=== PATIENT | male | born 1990 | race Caucasian/White ===

== ENCOUNTER 2024-10-20 14:27 | Outpatient (REF) | payer MEDICAID, SELFPAY ==
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
--- OUTSIDE RECORDS SUMMARY | 2024-10-17 13:45 | XMS_ITS | Encounter Summary ---
Author Organization [employer] Address [address] [place] [address] Care Team Providers Care Gang Ripsaw Operator Name Role Phone Unavailable Primary Care Provider Unavailabl e Reason for Visit * Reason Comments Wound Care Encounter Details Date Type Department Care Team (Late st Contact Info) Description 10/17/2024 1:45 PM EDT Office Visit [facility] [address] [place] [phone] Mathieu Bolton PA [address] [place] [address] Chronic venous hypertension (idiopathic) with ulcer of right lower extremity (CMS/HCC V24, CMS/HCC V28) (Primary Dx); Non-pressure chronic ulcer of right lower leg with fat layer exposed (CMS/HCC V24, CMS/HCC V28) Social History Tobacco Use Types Packs/Day Years Used Date Smoking Tobacco: Every Day Cigarettes Smokeless Tobacco: Never Alcohol Use Standard Drinks/Week Comments Not Currently 0 (1 standard drink = 0.6 oz pur e alcohol) Sex and Gender Information Value Date Recorded Sex Assigned at Not on file Legal Sex Male 10:10 AM EDT Gender Identity Not on file Sexual Orientation Not on file documented as of this encounter Last Filed Vital Signs Vital Sign Reading Time Taken Comments Blood Pressure 115/78 10/17/2024 1:49 PM EDT Pulse - - Temperature 36.2 C (97.2 F) 10/17/2024 1:49 PM EDT Respiratory Rate 18 10/17/2024 1:49 PM EDT Oxygen Saturation - - Inhaled Oxygen Concentration - - Weight - - Height - - Body Mass Index - - documented in this encounter Progress Notes * Susan Crockett RN - 10/17/2024 1:45 PM EDT PROVIDER ORDERS Go to ER if you are presenting with fever, chills, increased redness, pain, swelling, warmth aroundwound area and/or foul smelling odor. If you have any questions or concerns, please contact the [facility] [place] at . Follow up(s)/ Referrals: Venous ultrasound: 12/02/24 at 10:45am, arrive by 10:30am Halfway: N/A Additional Orders: Increase protein in your diet to help promote wound healing, Work to decrease smoking with goal of quitting Lidocaine Orders: Apply Lidocaine 5% Topical Ointment prior to debridements at Wound Care appointments Edema Control: (If your compression wrap(s) feel to tight, please elevate your leg(s) about heart level. If your wrap(s) are becoming painful and/or you loose sensation of toes/ are having toe discoloration (a change from your baseline), please remove / unwrap compression and notify [facility] at . ) Unna boot to right lower extremity, Elevate legs above heart level as much as possible Offloading: N/A Negative Pressure Wound Therapy: (If wound vac is off/non functioning for more than 2 hours, please remove vac dressing, apply a wetto dry dressing and notify your home care agency) N/A Cellular/Tissue Based Products: N/A Bathing / Showering / Hygiene: May shower with protection but DO NOT get wound dressing(s) wet. Protect dressing(s) with water repellant cover ( for example- large plastic bag or cast bag) and then may take shower. Non-wound Condition/ Other Skin Care: N/A Wound Location(s): Wound #1 (Right Lateral Leg): Cleanser: Cleanse with Normal Saline Periwound: N/A Topical: N/A Primary dressing: Collagen with Silver- will dissolve in wound. If not dissolving you may moisten with saline prior to covering. Secondary dressing: Optilock Secure with: 4 conforming gauze roll , 1 paper tape Compression Therapy: Unna boot to right lower extremity Dressing Change Frequency: DO NOT change for one week * Sherley Ni RN - 10/17/2024 1:45 PM EDT Discharge Patient directed to check out at front of house manager and collect visit summary with wound care directions and book follow up as directed. Dressings applied: Wound #1 (Right Lateral Leg): Cleanser: Normal Saline Primary dressing: Collagen with Silver-moistened Secondary dressing: Optilock Secure with: 4 conforming gauze roll , 1 paper tape Compression Therapy: Unna boot Dressing technique was demonstrated and explained. Patient questions answered. Pt discharge from wound care center without issue or incidence. documented in this encounter Plan of Treatment Upcoming Encounters Date Type Department Care Team (Late st Contact Info) Description 10/24/2024 1:45 PM EDT Clinical Support [facility] [address] [place] [address] 12/02/2024 10:45 AM EDT Ancillary Procedure [facility] [address] [phone] Pending Results Name Type Priority Associated Diagnoses Date /Time Wound Care Procedure Venous Ulcer Leg Right;Lateral Procedures Routine Chronic venous hypertension (idiopathic) with ulcer of right lower extremity (CMS/HCC V24, CMS/HCC V28) Non-pressure chronic ulcer of right lower leg with fat layer exposed (CMS/HCC V24, CMS/HCC V28) 10/17/2024 2:04 PM EDT Debridement Venous Ulcer Right;Lateral Leg Procedures Routine Chronic venous hypertension (idiopathic) with ulcer of right lower extremity (CMS/HCC V24, CMS/HCC V28) Non-pressure chronic ulcer of right lower leg with fat layer exposed (CMS/HCC V24, CMS/HCC V28) 10/17/2024 1:45 PM EDT documented as of this encounter Goals Goal Patient Goal Type Associated Problems Recent Progress Patient-Stated? Author Decrease Wound Volume by X% by date (in notes) Care Plan Impaired Tissue Improving(01/2025 2:05 PM EDT) Susan Yanes RN Patient and Caregiver Understand Wound Care Education Care Plan Impaired Tissue On track( 2:05 PM EDT) Susan Yanes RN Wound volume breakdown reduced by X% by week 4 Care Plan Impaired Tissue No Susan Crockett RN Wound volume breakdown reduced by X% by week 8 Care Plan Impaired Tissue No Susan Crockett RN Wound volume breakdown reduced by X% by week 12 Care Plan Impaired Tissue No Susan Crockett RN Quit using tobacco (cigarettes, smokeless, etc) Care Plan Education needed on impact of smoking on wound No Susan Crockett RN Reduce tobacco use (cigarettes, smokeless, etc) Care Plan Education needed on impact of smoking on wound No Susan Crockett RN Decrease Wound Volume by X% by date (in notes) Care Plan Education needed on impact of smoking on wound No Susan Crockett RN Patient and Caregiver Understand Wound Care Education Care Plan Education needed related to ulceration/compr omised skin integrity. No uSsan Crockett RN documented as of this encounter Procedures Procedure Name Priority Date/Time Associated Diagnosis Comments WOUND CARE PROCEDURE Routine 10/17/2024 2:04 PM E DT Chronic venous hypertension (idiopathic) with ulcer of right lower extremity (CMS/HCC V24, CMS/HCC V28) Non-pressure chronic ulcer of right lower leg with fat layer exposed (CMS/HCC V24, CMS/HCC V28) DEBRIDEMENT Routine 10/17/2024 1:45 PM EDT Chronic venous hypertension (idiopathic) with ulcer of right lower extremity (CMS/HCC V24, CMS/HCC V28) Non-pressure chronic ulcer of right lower leg with fat layer exposed (CMS/HCC V24, CMS/HCC V28) documented in this encounter Visit Diagnoses Diagnosis Chronic venous hypertension (idiopathic) with ulcer of right lower extremity (CMS/HCC V24, CMS/HCC V28)- Primary Non-pressure chronic ulcer of right lower leg with fat layer exposed (CMS/HCC V24, CMS/HCC V28) documented in this encounter Additional Health Concerns Active Problems Noted Date Diagnosed Date Impaired Tissue 08/15/2024 Education needed on impact of smoking on wound 0 08/15/2024 Education needed related to ulceration/compromised skin integrity. 08/15/2024 Assessment Noted Time PHQ-9 Depression Total Score: 2 08/16/19 25 2:47 PM EDT documented as of this encounter
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
[2024-10-20 16:37] LABS: Alanine Aminotransferase 129 U/L (0-40); Albumin Level 4.4 g/dL (3.5-5.0); Alkaline Phosphatase 54 U/L (39-117); Aspartate Amino Transferase 71 U/L (5-37); Total Protein 7.3 g/dL (6.5-8.0)
--- OUTSIDE RECORDS SUMMARY | 2024-10-20 19:57 | XMS_ITS | Encounter Summary ---
Author Organization [facility] [facility] Address [address] [place] [address] 7 [place] [address] Care Team Providers Care Evening Or Night Nurse Supervisor Name Role Phone Sendy Mike ANP- Primary Care Provider Gaviota Pereyra NP Primary Care Provider [phone] Reason for Visit * Reason Onset Date Comments -01/25/2022 Encounter Details Date Type Department Care Team (Late st Contact Info) Description 01/25/2022 Telephone Adult Medicine [address] [place] [address] Sendy Mike ANP- Social History Tobacco Use Types Packs/Day Years Used Date Smoking Tobacco: Never Smokeless Tobacco: Never Sex and Gender Information Value Date Recorded Sex Assigned at Male 12/02/2021 5:59 PM EDT Legal Sex Male 5:59 PM EDT Gender Identity Male 12/02/2021 5:59 PM EDT Sexual Orientation Straight 12/02/2021 5: 59 PM EDT COVID-19 Exposure Response Date Recorded In the last 10 days, have yo u been in contact with someone who was confirmed or suspected to have Coronavirus/COVID-19? No / Unsure 01/12/2022 8:30 AM EST documented as of this encounter Miscellaneous Notes * Telephone Encounter - Pratik Steinberg RN - 01/25/2022 12:46 PM EST See other telephone call encounter. * Telephone Encounter - Marylu Barraza - 01/25/2022 10:17 AM EST Called to inform pcp that pt was seen in er on 01/23 documented in this encounter Plan of Treatment Upcoming Encounters Date Type Department Care Team (Late st Contact Info) Description 10/22/2024 9:00 AM EDT Office Visit [address] [address] Sergio Gipson MD [address] [place] [address] 10/29/2024 9:00 AM EDT Office Visit [address] [address] Sergio Gipson MD [address] [place] [address] 11/19/2024 9:30 AM EDT Office Visit [address] [address] Gaviota Rivera NP [address] [place] [address] 01/05/2025 10:30 AM EST Office Visit [address] [address] Gaviota Rivera NP [address] [place] [phone] documented as of this encounter Visit Diagnoses Not on filedocumented in this encounter Care Teams Evening Or Night Nurse Supervisor Relationship Specialty Start Date End Date Sendy Mike ANP- PCP - General 02/05/21 10/02/22 Gaviota Rivera NP [address] [place] [phone] PCP - General Family Medicine 10/13/24 documented as of this encounter
--- OUTSIDE RECORDS SUMMARY | 2024-10-20 19:57 | XMS_ITS | Encounter Summary ---
Author Organization [email or web address] Address [address] [facility] 7 [place] [address] Care Team Providers Care Exhibition Carver Name Role Phone Gaviota Rivera CORA Primary Care Provider [phone] Encounter Details Date Type Department Care Team (Latest Contact Info) Description 10/20/2024 Travel Social History Tobacco Use Types Packs/Day Years [...] Cueto [place] documented as of this encounter Plan of Treatment Upcoming Encounters Date Type Department Care Team (Late st Contact Info) Description 10/22/2024 9:00 AM EDT Office Visit [address] [address] Sergio Gipson MD [address] [place] [phone] 10/29/2024 9:00 AM EDT Office Visit [address] [address] Sergio Gipson MD [address] [place] [address] 11/19/2024 9:30 AM EDT Office Visit [address] [address] Gaviota Rivera NP [address] [place] [address] 01/05/2025 10:30 AM EST Office Visit [address] [address] Gaviota Rivera NP [address] [place] [address] documented as of this encounter Goals Goal Patient Goal Type Associated Problems Recent Progress Patient-Stated? Author Start ATR and GED programs General Yes Dottie Patel, LIANNE documented as of this encounter Visit Diagnoses Not on filedocumented in this encounter Additional Health Concerns Assessment Noted Time PHQ-9 Depression Total Score: 0 10/21/19 25 2:18 PM EDT documented as of this encounter Care Teams Exhibition Carver Relationship Specialty Start Date End Date Gaviota Rivera NP [address] [place] [address] [place] [address] PCP - General Family Medicine 10/13/24 documented as of this encounter
--- OUTSIDE RECORDS SUMMARY | 2024-10-20 19:57 | XMS_ITS | Encounter Summary ---
Author Organization [employer] Address [address] [facility] [address]t [place] [address] Care Team Providers Care Boiler Tenders Supervisor Name Role Phone Gaviota Rivera REGISTERED PHLEBOTOMIST PART TIME Primary Care Provider [phone] Reason for Visit * Reason Comments [facility] Encounter Details Date Type Department Care Team (Late st Contact Info) Description 10/20/2024 Patient Outreach [facility] [address] [place] [address] Tyron Odom [facility] Social History Tobacco Use Types Packs/Day Years [...] is your housing situation today? I have navaalexis tolentino 10/20/[address] you [...] as of this encounter Progress Notes * Tyron Odom - 10/20/2024 3:45 PM EDT I met with Cleveland dove. Setting: in person at [facility] Wellness Goals worked on: Social Stability Action taken/next steps: Attended alcohol and drug free activity Additional comments: Tyron Odom documented in this encounter Plan of Treatment Upcoming Encounters Date Type Department Care Team (Late st Contact Info) Description 10/22/2024 9:00 AM EDT Office Visit [address] [address] Sergio Gipson MD [address] [place] [address] 10/29/2024 9:00 AM EDT Office Visit [address] [address] Sergio Gipson MD [address] [place] [address] 11/19/2024 9:30 AM EDT Office Visit [address] [address] Gaviota Rivera NP [address] [place] [address] 01/05/2025 10:30 AM EST Office Visit [address] [address] Gaviota Rivera NP [address] [place] [address] documented as of this encounter Goals Goal Patient Goal Type Associated Problems Recent Progress Patient-Stated? Author Start ATR and GED programs General Yes Dottie Patel, RN documented as of this encounter Visit Diagnoses Not on filedocumented in this encounter Additional Health Concerns Assessment Noted Time PHQ-9 Depression Total Score: 0 10/21/19 2:18 PM EDT documented as of this encounter Care Teams Boiler Tenders Supervisor Relationship Specialty Start Date End Date Gaviota Rivera NP [address] [place] [address] PCP - General Family Medicine 10/13/24 documented as of this encounter
--- OUTSIDE RECORDS SUMMARY | 2024-10-20 19:57 | XMS_ITS | Encounter Summary ---
Author Organization [facility] Address [address] [place] [address] [address] [place] [address] Care Team Providers Care Acid Tank Cleaner Name Role Phone Sendy Mike ANP-BC Primary Care Provider Gaviota Pereyra NP Primary Care Provider [phone] Reason for Visit * Reason Onset Date Comments call back looking for recovery program Encounter Details Date Type Department Care Team (Late st Contact Info) Description 04/04/2022 Telephone Health Benefits [address] [place] [address] Sendy Mike ANP-BC call back looking for recovery program Social History Tobacco Use Types Packs/Day Years [...] suspected to have Coronavirus/COVID-19? No / Unsure 03/31/2022 10:53 AM EST documented as of this encounter Miscellaneous Notes * Telephone Encounter - Rosa Maria Pink - 04/11/2022 12:10 PM EST Pt is requesting to speak to Sendy regarding assistance for a new Men's Program since he has to be out by next Sunday with [employer]. He would like a call back ny. * Telephone Encounter - Sylvia Ash - 04/10/2022 9:38 AM EST Pt. Call today to f/u on these request. Please call Pt. [phone]. He will coming out of the program about 04/18 and he will like to be on a program after you get out of these program. Please advise. Thanks * Telephone Encounter - Gabby Joshias - 04/04/2022 9:42 AM EST Pt is looking for new men's recovery program since he has tow weeks left in the program he is part of now. documented in this encounter Plan of Treatment Upcoming Encounters Date Type Department Care Team (Late st Contact Info) Description 10/22/2024 9:00 AM EDT Office Visit [address] [address] Sergio Gipson MD [address] [place] [phone] 10/29/2024 9:00 AM EDT Office Visit [address] [address] Sergio Gipson MD [address] [place] [phone] 11/19/2024 9:30 AM EDT Office Visit [address] [address] Gaviota Rivera NP [address] [place] [phone] 01/05/2025 10:30 AM EST Office Visit [address] [address] Gaviota Rivera NP [address] [place] [phone] documented as of this encounter Visit Diagnoses Not on filedocumented in this encounter Care Teams Acid Tank Cleaner Relationship Specialty Start Date End Date Sendy Mike ANP- PCP - General 02/05/21 10/02/22 Gaviota Rivera NP [address] [place] [phone] PCP - General Family Medicine 10/13/24 documented as of this encounter
--- OUTSIDE RECORDS SUMMARY | 2024-10-20 19:57 | XMS_ITS ---
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 08/15/2024 Goals Goal Patient Goal Type Associated Problems Recent Progress Patient-Stated? Author Decrease Wound Volume by X% by date (in notes) Care Plan Impaired Tissue Improving(01/2025 2:05 PM EDT) No Susan Crockett RN Patient and Caregiver Understand Wound Care Education Care Plan Impaired Tissue On track( 2:05 PM EDT) No Susan Crockett RN Wound volume breakdown reduced by X% by week 4 Care Plan Impaired Tissue No Susan Crockett, wastewater technician volume breakdown reduced by X% by week 8 Care Plan Impaired Tissue No Susan Crockett RN Wound volume breakdown reduced by X% by week 12 Care Plan Impaired Tissue No Susan Crockett, LIANNE Quit using tobacco (cigarettes, smokeless, etc) Care Plan Education needed on impact of smoking on wound No Susan Crockett, LIANNE Reduce tobacco use (cigarettes, smokeless, etc) Care Plan Education needed on impact of smoking on wound No Susan Crockett, RN Decrease Wound Volume by X% by date (in notes) Care Plan Education needed on impact of smoking on wound No Susan Crockett, RN Patient and Caregiver Understand Wound Care Education Care Plan Education needed related to ulceration/compr omised skin integrity. No Susan Crockett RN Interventions Care Plan Interventions Intervention Entry Date Outcome Provide caregiver with wound care procedure information 08/15/2024 Educate caregiver on proper wound care procedures 08/15/2024 Give provider list of wound care supplies 08/15/2024 Refill wound care supplies 08/15/2024 Send Wound Care Supplies 08/15/2024 Give provider list of wound care supplies 08/15/2024 Refill wound care supplies 08/15/2024 Send Wound Care Supplies 08/15/2024 Provide caregiver with wound care procedure information 08/15/2024 Educate caregiver on proper wound care procedures 08/15/2024 Document patient eligibility for HBO 08/15/2024 Assess patient for HBO treatment 08/15/2024 Record wound depth 08/15/2024 Record total wound area 08/15/2024 Measure wound progress 08/15/2024 Create an action plan identifying patient strengths and supports 08/15/2024 Establish quit date with patient 08/15/2024 Discuss prior cessation attempts 08/15/2024 Discuss preferred method of cessation and plan 08/15/2024 Discuss barriers to smoking cessation 08/15/2024 Discuss smoking status with patient 08/15/2024 Create an action plan identifying patient strengths and supports 08/15/2024 Establish quit date with patient 08/15/2024 Discuss prior cessation attempts 08/15/2024 Discuss preferred method of cessation and plan 08/15/2024 Discuss barriers to smoking cessation 08/15/2024 Discuss smoking status with patient 08/15/2024 Provide caregiver with wound care procedure information 08/15/2024 Educate caregiver on proper wound care procedures 08/15/2024 Document patient eligibility for HBO 08/15/2024 Assess patient for HBO treatment 08/15/2024 Record wound depth 08/15/2024 Record total wound area 08/15/2024 Measure wound progress 08/15/2024 Provide caregiver with wound care procedure information 08/15/2024 Educate caregiver on proper wound care procedures 08/15/2024 Document patient eligibility for HBO 08/15/2024 Assess patient for HBO treatment 08/15/2024 Record wound depth 08/15/2024 Record total wound area 08/15/2024 Measure wound progress 08/15/2024 Provide caregiver with wound care procedure information 08/15/2024 Educate caregiver on proper wound care procedures 08/15/2024 Document patient eligibility for HBO 08/15/2024 Assess patient for HBO treatment 08/15/2024 Record wound depth 08/15/2024 Record total wound area 08/15/2024 Measure wound progress 08/15/2024 Provide caregiver with wound care procedure information 08/15/2024 Educate caregiver on proper wound care procedures 08/15/2024 Give provider list of wound care supplies 08/15/2024 Refill wound care supplies 08/15/2024 Send Wound Care Supplies 08/15/2024 Give provider list of wound care supplies 08/15/2024 Refill wound care supplies 08/15/2024 Send Wound Care Supplies 08/15/2024 Provide caregiver with wound care procedure information 08/15/2024 Educate caregiver on proper wound care procedures 08/15/2024 Document patient eligibility for HBO 08/15/2024 Assess patient for HBO treatment 08/15/2024 Record wound depth 08/15/2024 Record total wound area 08/15/2024 Measure wound progress 08/15/2024 Related Goals and Interventions Goal Associated Intervent ions Decrease Wound Volume by X% by date (in notes) Give provider list of wound care supplie s; Refill wound care supplies; Send Wound Care Supplies; Provide caregiver with wound care procedure information; Educate caregiver on proper wound care procedures; Document patient eligibility for HBO; Assess patient for HBO treatment; Record wound depth; Record total wound area; Measure wound progress Patient and Caregiver Unders tand Wound Care Education Provide caregiver with wound care proced ure information; Educate caregiver on proper wound care procedures; Give provider list of wound care supplies; Refill wound care supplies; Send Wound Care Supplies Wound volume breakdown reduc ed by X% by week 4 Provide caregiver with wound care proced ure information; Educate caregiver on proper wound care procedures; Document patient eligibility for HBO; Assess patient for HBO treatment; Record wound depth; Record total wound area; Measure wound progress Wound volume breakdown reduc ed by X% by week 8 Provide caregiver with wound care proced ure information; Educate caregiver on proper wound care procedures; Document patient eligibility for HBO; Assess patient for HBO treatment; Record wound depth; Record total wound area; Measure wound progress Wound volume breakdown reduc ed by X% by week 12 Provide caregiver with wound care proced ure information; Educate caregiver on proper wound care procedures; Document patient eligibility for HBO; Assess patient for HBO treatment; Record wound depth; Record total wound area; Measure wound progress Quit using tobacco (cigarett es, smokeless, etc) Create an action plan identifying patien t strengths and supports; Establish quit date with patient; Discuss prior cessation attempts; Discuss preferred method of cessation and plan; Discuss barriers to smoking cessation; Discuss smoking status with patient Reduce tobacco use (cigarett es, smokeless, etc) Create an action plan identifying patien t strengths and supports; Establish quit date with patient; Discuss prior cessation attempts; Discuss preferred method of cessation and plan; Discuss barriers to smoking cessation; Discuss smoking status with patient Decrease Wound Volume by X% by date (in notes) Give provider list of wound care supplie s; Refill wound care supplies; Send Wound Care Supplies; Provide caregiver with wound care procedure information; Educate caregiver on proper wound care procedures; Document patient eligibility for HBO; Assess patient for HBO treatment; Record wound depth; Record total wound area; Measure wound progress Patient and Caregiver Unders tand Wound Care Education Provide caregiver with wound care proced ure information; Educate caregiver on proper wound care procedures; Give provider list of wound care supplies; Refill wound care supplies; Send Wound Care Supplies
--- OUTSIDE RECORDS SUMMARY | 2024-10-20 19:57 | XMS_ITS | Clinical Summary ---
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 Active prazosin (MINIPRESS) 2 mg capsule Take 1 capsule (2 mg total) by mouth at bedtime. Active buprenorphine-n aloxone (Suboxone) 2-0.[address] 2 films under the tongue 1 (one) time each day. After the medication is completely dissolved, take a large sip of water, swish it around teeth and gums, and swallow. Wait at least 1 hour before brushing teeth to avoid damage to your teeth. Active doxycycline (VIBRAMYCIN) 100 mg capsule Take 1 capsule (100 mg total) by mouth 2 (two) times a day for 10 days. Take with at least 8 ounces (large glass) of water, do not lie down for 30 minutes after. Administer 2 hours before or after multivitamins, antacids, or other products containing polyvalent cations (i.e., calcium, iron, magnesium, selenium, zinc). 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 [address] [place] [phone] Mathieu Bolton PA Chronic venous hypertension (idiopathic) with ulcer of right lower extremity (CMS/HCC V24, CMS/HCC V28) (Primary Dx); Non-pressure chronic ulcer of right lower leg with fat layer exposed (CMS/HCC V24, CMS/HCC V28) 10/09/2024 3:15 PM EDT Office Visit [facility] [address] [place] [phone] Mathieu Bolton PA Chronic venous hypertension (idiopathic) with ulcer of right lower extremity (CMS/HCC V24, CMS/HCC V28) (Primary Dx); Non-pressure chronic ulcer of right lower leg with fat layer exposed (CMS/HCC V24, CMS/HCC V28) 10/02/2024 2:00 PM EDT Office Visit [facility] [address] [place] [phone] Mathieu Bolton PA Chronic venous hypertension (idiopathic) with ulcer of right lower extremity (CMS/HCC V24, CMS/HCC V28) (Primary Dx); Non-pressure chronic ulcer of right lower leg with fat layer exposed (CMS/HCC V24, CMS/HCC V28) 09/25/2024 1:30 PM EDT Office Visit [facility] [address] [place] [phone] Mathieu Bolton PA Non-pressure chronic ulcer of right lower leg with fat layer exposed (CMS/HCC V24, CMS/HCC V28) (Primary Dx); Chronic venous hypertension (idiopathic) with ulcer of right lower extremity (CMS/HCC V24, CMS/HCC V28) 09/20/2024 9:07 PM EDT - 09/20/2024 9:[address] [facility] [address] [place] [phone] Abscess of axilla, right (Primary Dx) Discharge Disposition: Home or Self Care 09/18/2024 2:00 PM EDT Office Visit [facility] [address] [place] [phone] Mathieu Bolton PA Surgical wound dehiscence, subsequent encounter (Primary Dx); Non-pressure chronic ulcer of right lower leg with fat layer exposed ([facility] V24, [facility] V28) 09/11/2024 8:30 AM EDT Office Visit [facility] [address] [place] [phone] Mathieu Bolton PA Non-pressure chronic ulcer of right lower leg with fat layer exposed ([facility] [place]24, [facility] [place] (Primary Dx); Surgical wound dehiscence, subsequent encounter 09/05/2024 10:00 AM EDT Office Visit [facility] [address] [place] [phone] Phyllis Dominguez MD Surgical wound dehiscence, subsequent encounter (Primary Dx); Non-pressure chronic ulcer of right lower leg with fat layer exposed ([facility] V24, [facility] V28) 09/05/[address] [facility] [address] [place] [phone] Sherley Ni, LIANNE 09/05/[address] [facility] [address] [place] [phone] Sherley Ni, LIANNE 08/27/2024 8:15 AM EDT Office Visit [facility] [address] [place] [phone] Mathieu Bolton PA Surgical wound dehiscence, subsequent encounter (Primary Dx); Non-pressure chronic ulcer of right lower leg with fat layer exposed ([facility] V24, [facility] [place] Edema leg 08/27/[address] [facility] [address] [place] [phone] Lynne Thorpe LPN 08/27/[address] [facility] [address] [place] [phone] Mathieu Bolton PA 08/22/2024 11:30 AM EDT Office Visit [facility] [address] [place] [phone] Mathieu Bolton PA Surgical wound dehiscence, subsequent encounter (Primary Dx); Non-pressure chronic ulcer of right lower leg with fat layer exposed (CMS/HCC V24, [facility] V28); Chronic venous hypertension (idiopathic) with ulcer of right lower extremity ([facility] V24, [facility] V28) 08/15/2024 2:30 PM EDT Office Visit [facility] [address] [place] [phone] Mathieu Bolton PA Surgical wound dehiscence, initial encounter (Primary Dx); Non-pressure chronic ulcer of right lower leg with fat layer exposed ([facility] V24, [facility] V28) from Last 3 Months Surgical History Surgery Date Site/Laterality Comments OTHER SURGICAL HISTORY patietn denies surgical history Family History Medical History Relation Name Comments Diabetes Mother Relation Name Status Comments Mother Alive Social History Tobacco Use Types Packs/Day Years Used Date Smoking Tobacco: Every Day Cigarettes Smokeless Tobacco: Never Tobacco Cessation:Ready to Q uit: Not Asked; Counseling Given: Not Answered Alcohol Use Standard Drinks/Week Comments Not Currently 0 (1 standard drink = 0.6 oz pur e alcohol) Sex and Gender Information Value Date Recorded Sex Assigned at Not on file Legal Sex Male 10:10 AM EDT Gender Identity Not on file Sexual Orientation Not on file Obstetrics History Last Filed Vital Signs Vital Sign Reading Time Taken Comments Blood Pressure 115/78 10/17/2024 1:49 PM EDT Pulse 82 10/09/2024 3:03 PM EDT Temperature 36.2 C (97.2 F) 10/17/2024 1:49 PM EDT Respiratory Rate 18 10/17/2024 1:49 PM EDT Oxygen Saturation 96% 10/09/2024 3:03 PM EDT Inhaled Oxygen Concentration - - Weight 113 kg (250 lb) 09/20/2024 9:07 PM EDT Height 172.7 cm (5' 8 ) 09/20/2024 9:07 PM EDT Body Mass Index 38.01 09/20/2024 9:07 PM EDT Plan of Treatment Upcoming Encounters Date Type Department Care Team (Late st Contact Info) Description 10/24/2024 1:45 PM EDT Clinical Support [facility] [address] [place] [phone] 12/02/2024 10:45 AM EDT Ancillary Procedure [facility] [address] [place] [phone] Health Maintenance Due Date Last Done Comments Hepatitis A Vaccines (1 of 2 - Risk 2-dose series) 2008 Hepatitis B Vaccines (1 of 3 - 19+ 3-dose series) 2008 Pneumococcal Vaccine: Pediatrics (0 to 5 Years) and At-Risk Patients (6 to 49 Years) (1 of 2 - PCV) 2008 Cholesterol Screening (Lipid Panel) 08/13/2024 Hepatitis C Screening 08/13/2024 Social Influencers of Health Screening 08/13/2024 COVID-19 Vaccine (1 - 2023-2 5 season) 2024 Influenza Vaccine (#1) 2024 2, 10/28/2019 DTaP,Tdap,and Td Vaccines (4 - Td or Tdap) 09/06/2029 09/07/2019, 03/12/2019, 12/12/2010 HIV Screening Completed 05/10/2022 Depression Screening Completed 08/15/2024 HIB Vaccines Aged Out No longer eligi ble based on patient's age to complete this topic HPV Vaccines Aged Out No longer eligi ble based on patient's age to complete this topic IPV Vaccines Aged Out No longer eligi ble based on patient's age to complete this topic MMR Vaccines Aged Out No longer eligi ble based on patient's age to complete this topic Meningococcal ACWY Vaccine Aged Out N o longer eligible based on patient's age to complete this topic Meningococcal B Vaccine Aged Out No l onger eligible based on patient's age to complete this topic RSV Immunization Patients Under 20 months Aged Out No longer eligible b ased on patient's age to complete this topic Varicella Vaccines Aged Out No longer eligible based on patient's age to complete this topic Goals Goal Patient Goal Type Associated Problems Recent Progress Patient-Stated? Author Decrease Wound Volume by X% by date (in notes) Care Plan Impaired Tissue Improving(01/2025 2:05 PM EDT) Susan Yanes RN Patient and Caregiver Understand Wound Care Education Care Plan Impaired Tissue On track( 025 2:05 PM EDT) Susan Yanes RN Wound [...] needed on impact of smoking on wound Susan Yanes RN Reduce tobacco use (cigarettes, smokeless, etc) [...] omised skin integrity. No Susan Crockett RN Procedures Procedure Name Priority Date/Time Associated Diagnosis Comments WOUND CARE PROCEDURE Routine 10/17/2024 2:04 PM EDT Chronic venous hypertension (idiopathic) with [...] fat layer exposed (CMS/HCC V24, CMS/HCC V28) WOUND CARE PROCEDURE Routine 10/09/2024 3:19 PM EDT Chronic venous hypertension (idiopathic) with ulcer of right lower extremity (CMS/HCC V24, CMS/HCC V28) Non-pressure chronic ulcer of right lower leg with fat layer exposed (CMS/HCC V24, CMS/HCC V28) DEBRIDEMENT Routine 10/09/2024 3:15 PM EDT Chronic venous hypertension (idiopathic) with ulcer of right lower extremity (CMS/HCC V24, CMS/HCC V28) Non-pressure chronic ulcer of right lower leg with fat layer exposed (CMS/HCC V24, CMS/HCC V28) WOUND CARE PROCEDURE Routine 10/02/2024 2:14 PM EDT Chronic venous hypertension (idiopathic) with ulcer of right lower extremity (CMS/HCC V24, CMS/HCC V28) Non-pressure chronic ulcer of right lower leg with fat layer exposed (CMS/HCC V24, CMS/HCC V28) DEBRIDEMENT Routine 10/02/2024 2:00 PM EDT Chronic venous hypertension (idiopathic) with ulcer of right lower extremity (CMS/HCC V24, CMS/HCC V28) Non-pressure chronic ulcer of right lower leg with fat layer exposed (CMS/HCC V24, CMS/HCC V28) WOUND CARE PROCEDURE Routine 10/02/2024 1:57 PM EDT Non-pressure chronic ulcer of right lower leg with fat layer exposed (CMS/HCC V24, CMS/HCC V28) Surgical wound dehiscence, subsequent encounter WOUND CARE PROCEDURE Routine 09/25/2024 2:18 PM EDT Chronic venous hypertension (idiopathic) with ulcer of right lower extremity (CMS/HCC V24, CMS/HCC V28) Non-pressure chronic ulcer of right lower leg with fat layer exposed (CMS/HCC V24, CMS/HCC V28) DEBRIDEMENT Routine 09/25/2024 1:30 PM EDT Chronic venous hypertension (idiopathic) with ulcer of right lower extremity (CMS/HCC V24, CMS/HCC V28) Non-pressure chronic ulcer of right lower leg with fat layer exposed (CMS/HCC V24, CMS/HCC V28) HC I&D/EXCISION/BIOPSY BONE MARROW/TISSUE/TUMOR/ HTOMA/ABSC/CYST LEVEL 1 Routine 09/20/2024 9:21 PM EDT NE INCISION & DRAINAGE ABSCESS SIMPLE/SINGLE Routine 09/20/2024 9:21 PM EDT WOUND CARE PROCEDURE Routine 09/18/2024 2:23 PM EDT Surgical wound dehiscence, subsequent encounter Non-pressure chronic ulcer of right lower leg with fat layer exposed (CMS/HCC V24, CMS/HCC V28) DEBRIDEMENT Routine 09/18/2024 2:00 PM EDT Surgical wound dehiscence, subsequent encounter Non-pressure chronic ulcer of right lower leg with fat layer exposed (CMS/HCC V24, CMS/HCC V28) WOUND CARE PROCEDURE Routine 09/05/2024 3:37 PM EDT Surgical wound dehiscence, subsequent encounter Non-pressure chronic ulcer of right lower leg with fat layer exposed (CMS/HCC V24, CMS/HCC V28) WOUND CARE PROCEDURE Routine 08/27/2024 8:20 AM EDT Surgical wound dehiscence, subsequent encounter Non-pressure chronic ulcer of right lower leg with fat layer exposed (CMS/HCC V24, CMS/HCC V28) Edema leg DEBRIDEMENT Routine 08/27/2024 8:15 AM EDT Surgical wound dehiscence, subsequent encounter Non-pressure chronic ulcer of right lower leg with fat layer exposed (CMS/HCC V24, CMS/HCC V28) Edema leg DEBRIDEMENT Routine 08/22/2024 11:30 AM EDT Surgical wound dehiscence, subsequent encounter Non-pressure chronic ulcer of right lower leg with fat layer exposed (CMS/HCC V24, CMS/HCC V28) DEBRIDEMENT Routine 08/15/2024 2:30 PM EDT Surgical wound dehiscence, initial encounter Non-pressure chronic ulcer of right lower leg with fat layer exposed (CMS/HCC V24, CMS/HCC V28) from Last 3 Months Results * Wound Care Procedure Venous Ulcer Leg Right;Lateral (10/09/2024 3:19 PM EDT) Andrew Weiner MD - 10/09/2024 3:19 PM EDT MAKAYLA Maria 10/09/2024 3:28 PM Wound Care Procedure Venous Ulcer Leg Right;Lateral Date/Time: 10/09/2024 3:19 PM Performed by: Gaby Mojica RN Authorized by: MAKAYLA Maria Associated wounds: Wound Venous Ulcer 08/15/24 Leg Right;Lateral Consent: Consent obtained: Verbal Consent given by: Patient Risks, benefits, and alternatives were discussed: yes Risks discussed: Infection and pain Alternatives discussed: Delayed treatment [place] protocol: Procedure explained and questions answered to patient or proxy's satisfaction: yes Relevant documents present and verified: yes Patient identity confirmed: Verbally with patient Sedation: Sedation type: None Anesthesia: Anesthesia method: None Procedure details: Indications: open wounds Wound location: Leg Leg location: R lower leg Wound age (days): >14 Dressing: Dressing applied: Unna's boot Post-procedure details: Procedure completion: Tolerated Mathieu BENAVIDES IN CLINIC/BEDSIDE ORDERABLE S Final Result * Debridement Venous Ulcer Right;Lateral Leg (10/09/2024 3:15 PM EDT) Andrew Weiner MD - 10/09/2024 3:15 PM EDT MAKAYLA Maria 10/09/2024 3:28 PM Debridement Venous Ulcer Right;Lateral Leg Performed by: MAKAYLA Maria Authorized by: MAKAYLA Maria Associated wounds: Wound Venous Ulcer 08/15/24 Leg Right;Lateral Consent: Consent obtained: Verbal Consent given by: Patient Risks discussed: Yes Time out: Immediately prior to the procedure a time out was called Debridement Details: Performed by: MAKAYLA Type: surgical Level: subcutaneous tissue Pain control: Lidocaine 4% Severity of Tissue Pre Debridement: Fat layer exposed Severity of Tissue Post Debridement: Fat layer exposed Time taken: 10/09/2024 3:00 PM Length (cm): 5.2 Width (cm): 0.8 Depth (cm): 0.1 Area (cm^2): 4.16 Time taken: 10/09/2024 3:01 PM Length (cm): 5.2 Width (cm): 0.8 Depth (cm): 0.1 Percent Debrided (%): 75 Surface Area (cm^2): 4.16 Area Debrided (cm^2): 3.12 Volume (cm^3): 0.42 Tissue and other material debrided: subcutaneous tissue Devitalized tissue debrided: biofilm and slough Instrument: Curette Amount of bleeding: none Hemostasis obtained with: Not applicable Procedural pain: 0 Post-procedural pain: 0 Response to treatment: Procedure was tolerated well Mathieu BENAVIDES IN CLINIC/BEDSIDE ORDERABLE S Final Result * Wound Care Procedure Venous Ulcer Leg Right;Lateral (10/02/2024 2:14 PM EDT) Andrew Weiner MD - 10/02/2024 2:14 PM EDT MAKAYLA Maria 10/02/2024 2:23 PM Wound Care Procedure Venous Ulcer Leg Right;Lateral Date/Time: 10/02/2024 2:14 PM Performed by: Sherley Ni RN Authorized by: MAKAYLA Maria Associated wounds: Wound Venous Ulcer 08/15/24 Leg Right;Lateral Consent: Consent obtained: Verbal Consent given by: Patient Risks, benefits, and alternatives were discussed: yes Risks discussed: Infection and pain Alternatives discussed: Delayed treatment [place] protocol: Procedure explained and questions answered to patient or proxy's satisfaction: yes Relevant documents present and verified: yes Patient identity confirmed: Verbally with patient Sedation: Sedation type: None Anesthesia: Anesthesia method: None Procedure details: Indications: open wounds Wound location: Leg Leg location: R lower leg Wound age (days): >14 Dressing: Dressing applied: Unna's boot Post-procedure details: Procedure completion: Tolerated Mathieu BENAVIDES IN CLINIC/BEDSIDE ORDERABLE S Final Result * Debridement Venous Ulcer Right;Lateral Leg (10/02/2024 2:00 PM EDT) Andrew Weiner MD - 10/02/2024 2:00 PM EDT MAKAYLA Maria 10/02/2024 2:23 PM Debridement Venous Ulcer Right;Lateral Leg Performed by: MAKAYLA Maria Authorized by: MAKAYLA Maria Associated wounds: Wound Venous Ulcer 08/15/24 Leg Right;Lateral Consent: Consent obtained: Verbal Consent given by: Patient Risks discussed: Yes Time out: Immediately prior to the procedure a time out was called Debridement Details: Performed by: MAKAYLA Type: surgical Level: subcutaneous tissue Pain control: Lidocaine 4% Severity of Tissue Pre Debridement: Fat layer exposed Severity of Tissue Post Debridement: Fat layer exposed Time taken: 10/02/2024 2:02 PM Length (cm): 5.4 Width (cm): 0.9 Depth (cm): 0.1 Area (cm^2): 4.86 Time taken: 10/02/2024 2:03 PM Length (cm): 5.4 Width (cm): 0.9 Depth (cm): 0.1 Percent Debrided (%): 75 Surface Area (cm^2): 4.86 Area Debrided (cm^2): 3.65 Volume (cm^3): 0.49 Tissue and other material debrided: dermis, epidermis and subcutaneous tissue Devitalized tissue debrided: biofilm and slough Instrument: Curette Amount of bleeding: none Hemostasis obtained with: Not applicable Procedural pain: 0 Post-procedural pain: 0 Response to treatment: Procedure was tolerated well us Mathieu BENAVIDES IN CLINIC/BEDSIDE ORDERABLE S Final Result * Wound Care Procedure Venous Ulcer Leg Right;Lateral (10/02/2024 1:57 PM EDT) Susan Payne RN - 10/02/2024 1:57 PM EDT Susan Crockett RN 10/02/2024 1:57 PM Wound Care Procedure Venous Ulcer Leg Right;Lateral Date/Time: 10/02/2024 1:57 PM Performed by: Susan Crockett RN Authorized by: MAKAYLA Maria Associated wounds: Wound Venous Ulcer 08/15/24 Leg Right;Lateral Consent: Consent obtained: Verbal Consent given by: Patient Risks, benefits, and alternatives were discussed: yes Risks discussed: Infection and pain Alternatives discussed: Delayed treatment [place] protocol: Procedure explained and questions answered to patient or proxy's satisfaction: yes Relevant documents present and verified: yes Patient identity confirmed: Verbally with patient Sedation: Sedation type: None Anesthesia: Anesthesia method: None Procedure details: Indications: open wounds Wound location: Leg Leg location: R lower leg Dressing: Dressing applied: Unna's boot Post-procedure details: Procedure completion: Tolerated us Mathieu BENAVIDES IN CLINIC/BEDSIDE ORDERABLE S Final Result * Wound Care Procedure Venous Ulcer Leg Right;Lateral (09/25/2024 2:18 PM EDT) Susan Payne RN - 09/25/2024 2:18 PM EDT Susan Crockett RN 09/25/2024 2:21 PM Wound Care Procedure Venous Ulcer Leg Right;Lateral Date/Time: 09/25/2024 2:18 PM Performed by: Susan Crockett RN Authorized by: MAKAYLA Maria Associated wounds: Wound Venous Ulcer 08/15/24 Leg Right;Lateral Consent: Consent obtained: Verbal Consent given by: Patient Risks, benefits, and alternatives were discussed: yes Risks discussed: Infection and pain Alternatives discussed: Delayed treatment [place] protocol: Procedure explained and questions answered to patient or proxy's satisfaction: yes Relevant documents present and verified: yes Patient identity confirmed: Verbally with patient Sedation: Sedation type: None Anesthesia: Anesthesia method: None Procedure details: Indications: open wounds Wound location: Leg Leg location: R lower leg Wound age (days): >14 Dressing: Dressing applied: Unna's boot Post-procedure details: Procedure completion: Tolerated Mathieu BENAVIDES IN CLINIC/BEDSIDE ORDERABLE S Final Result * Debridement Venous Ulcer Right;Lateral Leg (09/25/2024 1:30 PM EDT) Andrew Weiner MD - 09/25/2024 1:30 PM EDT MAKAYLA Maria 09/25/2024 2:21 PM Debridement Venous Ulcer Right;Lateral Leg Performed by: MAKAYLA Maria Authorized by: MAKAYLA Maria Associated wounds: Wound Venous Ulcer 08/15/24 Leg Right;Lateral Consent: Consent obtained: Verbal Consent given by: Patient Risks discussed: Yes Time out: Immediately prior to the procedure a time out was called Debridement Details: Performed by: MAKAYLA Type: surgical Level: subcutaneous tissue Pain control: Lidocaine 4% Severity of Tissue Pre Debridement: Fat layer exposed Severity of Tissue Post Debridement: Fat layer exposed Time taken: 09/25/2024 1:49 PM Length (cm): 6 Width (cm): 0.9 Depth (cm): 0.1 Area (cm^2): 5.4 Time taken: 09/25/2024 1:50 PM Length (cm): 6 Width (cm): 0.9 Depth (cm): 0.1 Percent Debrided (%): 100 Surface Area (cm^2): 5.4 Area Debrided (cm^2): 5.4 Volume (cm^3): 0.54 Tissue and other material debrided: dermis, epidermis and subcutaneous tissue Devitalized tissue debrided: biofilm and slough Instrument: Curette Amount of bleeding: none Hemostasis obtained with: Not applicable Procedural pain: 0 Post-procedural pain: 0 Response to treatment: Procedure was tolerated well us Mathieu BENAVIDES IN CLINIC/BEDSIDE ORDERABLE S Final Result * NE INCISION & DRAINAGE ABSCESS SIMPLE/SINGLE, HC I&D/EXCISION/BIOPSY BONE MARROW/TISSUE/TUMOR/HTOMA/ABSC/CYST LEVEL 1 (09/20/2024 9:21 PM EDT) Romina Lal MD - 09/20/2024 9:21 PM EDT MAKAYLA Medina 09/20/2024 9:22 PM Incision and Drainage Date/Time: 09/20/2024 9:21 PM Performed by: MAKAYLA Medina Authorized by: Romina Jack MD Consent: Consent obtained: Verbal Consent given by: Patient Risks, benefits, and alternatives were discussed: yes Risks discussed: Bleeding, incomplete drainage, pain and damage to other organs Alternatives discussed: No treatment [place] protocol: Patient identity confirmed: Verbally with patient Location: Type: Abscess Size: 4 Location: Upper extremity (Right axilla) Pre-procedure details: Procedure prep: Alcohol wipes. Sedation: Sedation type: None Anesthesia: Anesthesia method: Local infiltration Local anesthetic: Lidocaine 1% WITH epi (5mL) Procedure type: Complexity: Simple Procedure details: Needle aspiration: yes Needle size: 18 G Incision depth: Dermal Drainage: Purulent and bloody Drainage amount: Moderate (7 mL) Wound treatment: Wound left open Post-procedure details: Procedure completion: Tolerated well, no immediate complications us Romina Jack MD IN CLINIC/BEDSIDE ORDERABLES Fin al Result * Wound Care Procedure Open Surgical Incision Leg Right;Lateral (09/18/2024 2:23 PM EDT) Andrew Weiner MD - 09/18/2024 2:23 PM EDT MAKAYLA Maria 09/18/2024 2:33 PM Wound Care Procedure Open Surgical Incision Leg Right;Lateral Date/Time: 09/18/2024 2:23 PM Performed by: Gaby Mojica RN Authorized by: MAKAYLA Maria Associated wounds: Wound Open Surgical Incision 08/15/24 Leg Right;Lateral Consent: Consent obtained: Verbal Consent given by: Patient Risks, benefits, and alternatives were discussed: yes Risks discussed: Infection and pain Alternatives discussed: Delayed treatment [place] protocol: Procedure explained and questions answered to patient or proxy's satisfaction: yes Relevant documents present and verified: yes Patient identity confirmed: Verbally with patient Sedation: Sedation type: None Anesthesia: Anesthesia method: None Procedure details: Indications: open wounds Wound location: Leg Leg location: R lower leg Wound age (days): >14 Dressing: Dressing applied: Unna's boot Post-procedure details: Procedure completion: Tolerated Mathieu BENAVIDES IN CLINIC/BEDSIDE ORDERABLE S Final Result * Debridement Open Surgical Incision Right;Lateral Leg (09/18/2024 2:00 PM EDT) Andrew Weiner MD - 09/18/2024 2:00 PM EDT MAKAYLA Maria 09/18/2024 2:33 PM Debridement Open Surgical Incision Right;Lateral Leg Performed by: MAKAYLA Maria Authorized by: MAKAYLA Maria Associated wounds: Wound Open Surgical Incision 08/15/24 Leg Right;Lateral Consent: Consent obtained: Verbal Consent given by: Patient Risks discussed: Yes Time out: Immediately prior to the procedure a time out was called Debridement Details: Performed by: MAKAYLA Type: surgical Level: subcutaneous tissue Pain control: Lidocaine 4% Severity of Tissue Pre Debridement: Fat layer exposed Severity of Tissue Post Debridement: Fat layer exposed Time taken: 09/18/2024 2:15 PM Length (cm): 6 Width (cm): 0.9 Depth (cm): 0.1 Area (cm^2): 5.4 Time taken: 09/18/2024 2:16 PM Length (cm): 6 Width (cm): 0.9 Depth (cm): 0.1 Percent Debrided (%): 100 Surface Area (cm^2): 5.4 Area Debrided (cm^2): 5.4 Volume (cm^3): 0.54 Tissue and other material debrided: dermis, epidermis and subcutaneous tissue Devitalized tissue debrided: biofilm and slough Instrument: Curette Amount of bleeding: none Hemostasis obtained with: Not applicable Procedural pain: 0 Post-procedural pain: 0 Response to treatment: Procedure was tolerated well us Mathieu BENAVIDES IN CLINIC/BEDSIDE ORDERABLE S Final Result * Wound Care Procedure (09/05/2024 3:37 PM EDT) Sherley Floyd RN - 09/05/2024 3:37 PM EDT Sherley Ni RN 09/15/2024 9:58 AM Wound Care Procedure Date/Time: 09/05/2024 3:37 PM Performed by: Sherley Ni RN Authorized by: Phyllis Dominguez MD Consent: Consent obtained: Verbal Consent given by: Patient Risks, benefits, and alternatives were discussed: yes Risks discussed: Infection and pain Alternatives discussed: Delayed treatment [place] protocol: Procedure explained and questions answered to patient or proxy's satisfaction: yes Relevant documents present and verified: yes Test results available: yes Patient identity confirmed: Verbally with patient Sedation: Sedation type: None Anesthesia: Anesthesia method: None Procedure details: Indications: open wounds Wound location: Leg Leg location: R lower leg Wound age (days): >14 Debridement performed: No Dressing: Wrapped with: UNNA BOOT. Post-procedure details: Procedure completion: Tolerated Phyllis Dominguez MD IN CLINIC/BEDSIDE ORDERAB LES Final Result * Wound Care Procedure Open Surgical Incision Right;Lateral Leg (08/27/2024 8:20 AM EDT) Andrew Weiner MD - 08/27/2024 8:20 AM EDT MAKAYLA Maria 08/27/2024 8:31 AM Wound Care Procedure Open Surgical Incision Right;Lateral Leg Date/Time: 08/27/2024 8:20 AM Performed by: Sherley Ni RN Authorized by: MAKAYLA Maria Associated wounds: Wound Open Surgical Incision 08/15/24 Leg Right;Lateral Consent: Consent obtained: Verbal Consent given by: Patient Risks, benefits, and alternatives were discussed: yes Risks discussed: Pain Alternatives discussed: Delayed treatment [place] protocol: Procedure explained and questions answered to patient or proxy's satisfaction: yes Relevant documents present and verified: yes Test results available: yes Imaging studies available: yes Patient identity confirmed: Verbally with patient Sedation: Sedation type: None Anesthesia: Anesthesia method: None Procedure details: Indications: open wounds Indications comment: Edema Wound location: Leg Leg location: R lower leg Wound age (days): >14 Dressing: Dressing applied: Unna's boot Post-procedure details: Procedure completion: Tolerated well, no immediate complications Mathieu BENAVIDES IN CLINIC/BEDSIDE ORDERABLE S Final Result * Debridement Open Surgical Incision Right;Lateral Leg (08/27/2024 8:15 AM EDT) Andrew Weiner MD - 08/27/2024 8:15 AM EDT MAKAYLA Maria 08/27/2024 8:31 AM Debridement Open Surgical Incision Right;Lateral Leg Performed by: MAKAYLA Maria Authorized by: MAKALYA Maria Associated wounds: Wound Open Surgical Incision 08/15/24 Leg Right;Lateral Consent: Consent obtained: Verbal Consent given by: Patient Risks discussed: Yes Time out: Immediately prior to the procedure a time out was called Debridement Details: Performed by: MAKAYLA Type: surgical Level: subcutaneous tissue Pain control: Lidocaine 4% Severity of Tissue Pre Debridement: Fat layer exposed Severity of Tissue Post Debridement: Fat layer exposed Time taken: 08/27/2024 8:06 AM Length (cm): 6.6 Width (cm): 1 Depth (cm): 0.2 Area (cm^2): 6.6 Time taken: 08/27/2024 8:07 AM Length (cm): 6.6 Width (cm): 1 Depth (cm): 0.2 Percent Debrided (%): 75 Surface Area (cm^2): 6.6 Area Debrided (cm^2): 4.95 Volume (cm^3): 1.32 Tissue and other material debrided: dermis, epidermis and subcutaneous tissue Devitalized tissue debrided: biofilm and slough Instrument: Curette Amount of bleeding: none Hemostasis obtained with: Not applicable Procedural pain: 0 Post-procedural pain: 0 Response to treatment: Procedure was tolerated well us Mathieu BENAVIDES IN CLINIC/BEDSIDE ORDERABLE S Final Result * Debridement Open Surgical Incision Right;Lateral Leg (08/22/2024 11:30 AM EDT) Andrew Weiner MD - 08/22/2024 11:30 AM EDT MAKAYLA Maria 08/22/2024 12:36 PM Debridement Open Surgical Incision Right;Lateral Leg Performed by: MAKAYLA Maria Authorized by: MAKAYLA Maria Associated wounds: Wound Open Surgical Incision 08/15/24 Leg Right;Lateral Consent: Consent obtained: Verbal Consent given by: Patient Risks discussed: Yes Time out: Immediately prior to the procedure a time out was called Debridement Details: Performed by: PA Type: surgical Level: subcutaneous tissue Pain control: Lidocaine 4% Severity of Tissue Pre Debridement: Fat layer exposed Severity of Tissue Post Debridement: Fat layer exposed Time taken: 08/22/2024 11:45 AM Length (cm): 6.3 Width (cm): 1 Depth (cm): 0.2 Area (cm^2): 6.3 Time taken: 08/22/2024 11:46 AM Length (cm): 6.3 Width (cm): 1 Depth (cm): 0.2 Percent Debrided (%): 100 Surface Area (cm^2): 6.3 Area Debrided (cm^2): 6.3 Volume (cm^3): 1.26 Tissue and other material debrided: dermis, epidermis and subcutaneous tissue Devitalized tissue debrided: biofilm and slough Instrument: Curette Amount of bleeding: none Hemostasis obtained with: Not applicable Procedural pain: 0 Post-procedural pain: 0 Response to treatment: Procedure was tolerated well us Mathieu BENAVIDES IN CLINIC/BEDSIDE ORDERABLE S Final Result * Debridement Open Surgical Incision Right;Lateral Leg (08/15/2024 2:30 PM EDT) Andrew Weiner MD - 08/15/2024 2:30 PM EDT MAKAYLA Maria 08/15/2024 3:36 PM Debridement Open Surgical Incision Right;Lateral Leg Performed by: MAKAYLA Maria Authorized by: MAKAYLA Maria Associated wounds: Wound Open Surgical Incision 08/15/24 Leg Right;Lateral Consent: Consent obtained: Verbal Consent given by: Patient Risks discussed: Yes Time out: Immediately prior to the procedure a time out was called Debridement Details: Performed by: MAKAYLA Type: surgical Level: subcutaneous tissue Pain control: Lidocaine 4% Severity of Tissue Pre Debridement: Fat layer exposed Severity of Tissue Post Debridement: Fat layer exposed Time taken: 08/15/2024 2:58 PM Length (cm): 6.3 Width (cm): 1.2 Depth (cm): 0.1 Area (cm^2): 7.56 Time taken: 08/15/2024 2:59 PM Length (cm): 6.3 Width (cm): 1.2 Depth (cm): 0.1 Percent Debrided (%): 100 Surface Area (cm^2): 7.56 Area Debrided (cm^2): 7.56 Volume (cm^3): 0.76 Tissue and other material debrided: dermis, epidermis and subcutaneous tissue Devitalized tissue debrided: biofilm, exudate, fibrin and slough Instrument: Curette Amount of bleeding: none Hemostasis obtained with: Not applicable Procedural pain: 0 Post-procedural pain: 0 Response to treatment: Procedure was tolerated well us Mathieu BENAVIDES IN CLINIC/BEDSIDE ORDERABLE S Final Result from Last 3 Months Additional Health Concerns Active Problems Noted Date Diagnosed Date Impaired Tissue 08/15/2024 Education needed on impact of smoking on wound 0 08/15/2024 Education needed related to ulceration/compromised skin integrity. 08/15/2024 Insurance [place]ICAID - [place]
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
[2024-10-21 08:32] LABS: HBS Num1 38.45 mIU/mL (0-7.99); HBc Num1 9.70 S/CO (0.00-0.79); HBsAGNum1 0.55 S/CO (0.00-0.99); HIV Num 1 0.04 S/CO (0.00-0.99); Hepatitis B Surface Antigen Negative (Negative); ~HepC Num1 13.44 S/CO (0.00-0.79); ~Hepatitis B Surface Antibody REACTIVE (Nonreactive); ~Hepatitis C Antibody Reactive (Nonreactive)
[2024-10-21 10:57] LABS: HBc Num2 9.37 S/CO; HBc Num3 9.59 S/CO
[2024-10-22 14:23] LABS: HCV Log PCR 6.90 Log IU/mL (NOT DETECTED); HepC Viral Load 7960000 IU/mL (NOT DETECTED)
[2024-10-23 04:39] LABS: TS Negative Control Passed; TS Panel A 0; TS Panel B 3; TS Positive Control Passed; TSpotTB Negative (Negative)
[2024-10-24 09:34] LABS: ~Hepatitis A Antibody IgG 0.44 S/CO (0.00-0.99)
== END 2024-10-20 14:28 | disposition home or self-care (01) ==
LOC: HO.HHCL 14:27
PROVIDERS: Visit Provider Emergency Medicine
DX: F11.20 Opioid dependence, uncomplicated (principal); Z11.1 Encounter for screening for respiratory tuberculosis; Z11.4 Encounter for screening for human immunodeficiency virus [HIV]; Z11.59 Encounter for screening for other viral diseases; Z01.84 Encounter for antibody response examination
CPT/HCPCS: 36415; 80076; 86481; 86592; 86704; 86705; 86706; 86708; 86803; 87340; 87389; 87522

== ENCOUNTER 2024-10-29 10:24 | Outpatient (REF) | payer MEDICAID, SELFPAY ==
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
--- OUTSIDE RECORDS SUMMARY | 2024-10-24 13:45 | XMS_ITS | Encounter Summary ---
Author Organization [employer] Address [address] [place] [address] Care Team Providers Care Uncrater Name Role Phone Unavailable Primary Care Provider Unavailabl e Reason for Visit * Reason Comments Wound Care Encounter Details Date Type Department Care Team (Late st Contact Info) Description 10/24/2024 1:45 PM EDT Office Visit [facility] [address] [place] [phone] Mathieu Bolton PA [address] [place] [address] Chronic venous hypertension (idiopathic) with ulcer of [...] Sign Reading Time Taken Comments Blood Pressure 114/62 10/24/2024 2:03 PM EDT Pulse 75 10/24/2024 2:03 PM EDT Temperature 36.6 C (97.8 F) 10/24/2024 2:03 PM EDT Respiratory Rate 18 10/24/2024 2:03 PM EDT Oxygen Saturation 96% 10/24/2024 2:03 PM EDT Inhaled Oxygen Concentration - - Weight - - Height - - Body Mass Index - - documented in this encounter Progress Notes * Susan Crockett RN - 10/24/2024 1:45 PM EDT PROVIDER ORDERS Go to ER if you are presenting with fever, chills, increased redness, pain, swelling, warmth aroundwound area and/or foul smelling odor. If you have any questions or concerns, please contact the [facility] [place] at . Follow up(s)/ Referrals: Venous ultrasound: 12/02/24 at 10:45am, arrive by 10:30am Penitentiary: N/A Additional Orders: Increase protein in your [...] please remove / unwrap compression and notify [facility] at . 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 Dressings applied: Wound #1 (Right Lateral Leg): Cleanser: Normal Saline Primary dressing: Collagen with Silver- pre moistened Secondary dressing: Optilock Secure with: 4 conforming gauze roll , 1 paper tape Compression Therapy: Unna boot Dressing technique was demonstrated and explained. Patient questions answered. Pt discharge from wound care center without issue or incidence. documented in this encounter Plan of Treatment Upcoming Encounters Date Type Department Care Team (Late st Contact Info) Description 10/31/2024 2:00 PM EDT Clinical Support [facility] [address] [place] [phone] Pending Results Name Type Priority Associated Diagnoses Date /Time Wound Care Procedure Venous Ulcer Leg Right;Lateral Procedures Routine Chronic venous hypertension (idiopathic) with ulcer of right lower extremity (CMS/HCC V24, CMS/HCC V28) Non-pressure chronic ulcer of right lower leg with fat layer exposed (CMS/HCC V24, CMS/HCC V28) 10/24/2024 2:13 PM EDT Debridement Venous Ulcer Right;Lateral Leg Procedures Routine Chronic venous hypertension (idiopathic) with ulcer of right lower extremity (CMS/HCC V24, CMS/HCC V28) Non-pressure chronic ulcer of right lower leg with fat layer exposed (CMS/HCC V24, CMS/HCC V28) 10/24/2024 1:45 PM EDT documented as of this encounter Goals Goal Patient Goal Type Associated Problems Recent Progress Patient-Stated? Author Decrease Wound Volume by X% by date (in notes) Care Plan Impaired Tissue On track( 025 2:47 PM EDT) Susan Yanes RN Patient and Caregiver Understand Wound Care Education Care Plan Impaired Tissue On track( 025 2:47 PM EDT) Susan Yanes RN Wound volume [...] on impact of smoking on wound No Susna Crockett RN Decrease Wound Volume by X% by date (in notes) Care Plan Education needed on impact of smoking on wound No Susan Crockett RN Patient and Caregiver Understand Wound Care Education Care Plan Education needed related to ulceration/compr omised skin integrity. No Susan Crockett RN documented as of this encounter Procedures Procedure Name Priority Date/Time Associated Diagnosis Comments WOUND CARE PROCEDURE Routine 10/24/2024 2:13 PM E DT Chronic venous hypertension (idiopathic) with ulcer of right lower extremity (CMS/HCC V24, CMS/HCC V28) Non-pressure chronic ulcer of right lower leg with fat layer exposed (CMS/HCC V24, CMS/HCC V28) DEBRIDEMENT Routine 10/24/2024 1:45 PM EDT Chronic venous hypertension (idiopathic) [...] V24, CMS/HCC V28) documented in this encounter Historical Medications * This list may reflect changes made after this encounter. traZODone (DESYREL) 50 mg tablet Take 1 tablet (50 mg total) by mouth once daily as needed. 10/20/2024 11/19/2024 added in this encounter Additional Health Concerns Active Problems Noted Date Diagnosed Date Impaired Tissue 08/15/2024 Education needed on impact of smoking on wound 0 08/15/2024 Education needed related to ulceration/compromised skin integrity. 08/15/2024 Assessment Noted Time PHQ-9 Depression Total Score: 2 08/16/19 25 2:47 PM EDT documented as of this encounter
--- OUTSIDE RECORDS SUMMARY | 2024-10-29 09:00 | XMS_ITS | Encounter Summary ---
Author Organization [employer] Address [address] [place] [address] 7 [place] [address] Care Team Providers Care Director Of Services Name Role Phone Gaviota Rivera SCIENTIST/ENGINEER Primary Care Provider [phone] Reason for Visit * Reason Comments GBAT F/U Encounter Details Date Type Department Care Team (Late st Contact Info) Description 10/29/2024 9:00 AM EDT Office Visit [facility] [address] [place] [address] Sergio Gipson MD [address] [place], [place] [phone] Opioid type dependence, continuous (CMS/HCC) (Primary Dx) Social History Tobacco Use Types Packs/Day Years Used Date Smoking Tobacco: Former Cigarettes Smokeless Tobacco: Never Alcohol Answer Date Recorded How often do you have a drink containing alcohol ? 0 05/01/2022 Average Number of Drinks Not on file 023 Frequency of Binge Drinking Not on file 04/06 Depression Answer Date Recorded Patient Health Questionnaire-9 Score 8 10/21/2024 Patient Health Questionnaire-9 Score 8 10/21/2024 Last PHQ-9: Questionnaire Data Not on file 0 10/21/2024 Housing Stability Answer Date Recorded What is your housing situation today? I have naav tolentino 10/20/[address] you [...] Answer Date Recorded Patient Health Questionnaire-2 Score 1 10/21/2024 Internet Access Answer Date Recorded Internet Access Q1 No 10/20/2024 Internet Access Q2 Not on file 10/20/2024 Sex and Gender Information Value Date Recorded Sex Assigned at Male 12/02/2021 5:59 PM EDT Legal Sex Male 5:59 PM EDT Gender Identity Male 12/02/2021 5:59 PM EDT Sexual Orientation Straight 12/02/2021 5: 59 PM EDT documented as of this encounter Plan of Treatment Upcoming Encounters Date Type Department Care Team (Late st Contact Info) Description 11/05/2024 9:00 AM EDT Office Visit [address] [address] Sergio Gipson MD [address] [place] [phone] 11/18/2024 9:00 AM EDT Clinical Support [address] [address] Dottie Patel RN 11/19/2024 9:30 AM EDT Office Visit [address] [address] Gaviota Rivera NP [address] [place] [address] 01/05/2025 10:30 AM EST Office Visit [address] [address] Gaviota Rivera NP [address] [place] [address] documented as of this encounter Goals Goal Patient Goal Type Associated Problems Recent Progress Patient-Stated? Author Start ATR and GED programs General Yes Dottie Patel RN documented as of this encounter Procedures Procedure Name Priority Date/Time Associated Diagnosis Comments POCT MARY-14 URINE DRUG SCREEN Routine 10/29/2024 9:52 AM EDT Opioid type dependence, continuous (CMS/HCC) documented in this encounter Results * (ABNORMAL) POCT MARY-14 Urine Drug Screen (10/29/2024 9:52 AM EDT) THC Negative Negative Cocaine Screen, Urine [...] obtained by clean catch procedure / Unknown 10/29/2024 9:52 AM EDT Sergio Gipson MD POINT OF CARE TEST ENTER/EDIT OR DERABLES Final Result documented in this encounter Visit Diagnoses Diagnosis Opioid type dependence, continuous (CMS/HCC)- Primary Opioid type dependence, continuous documented in this encounter Additional Health Concerns Assessment Noted Time PHQ-9 Depression Total Score: 8 10/22/19 25 10:20 AM EDT documented as of this encounter Care Teams Director Of Services Relationship Specialty Start Date End Date Gaviota Rivera NP [address] [place] [phone] PCP - General Family Medicine 10/13/24 documented as of this encounter
--- OUTSIDE RECORDS SUMMARY | 2024-10-29 12:53 | XMS_ITS | Encounter Summary ---
Author Organization [employer] Address [address] [facility] 7 [place] [address] Care Team Providers Care Picc Nurse Name Role Phone Gaviota Rivera CORA Primary Care Provider [phone] Encounter Details Date Type Department Care Team (Latest Contact Info) Description 10/29/2024 Travel Social History Tobacco Use Types Packs/Day [...] Description 11/05/2024 9:00 AM EDT Office Visit [address] [address] Sergio Gipson MD [address] [place] [address] 11/18/2024 9:00 AM EDT Clinical Support [address] [address] Dottie Patel RN 11/19/2024 9:30 AM EDT Office Visit [address] [address] Gaviota Rivera NP [address] [place] [address] 01/05/2025 10:30 AM EST Office Visit [address] [address] Gaviota Rivera NP [address] [place] [address] documented as of this encounter Goals Goal Patient Goal Type Associated Problems Recent Progress Patient-Stated? Author Start ATR and GED programs General Yes Dottie Patel RN documented as of this encounter Visit Diagnoses Not on filedocumented in this encounter Additional Health Concerns Assessment Noted Time PHQ-9 Depression Total Score: 8 10/22/19 25 10:20 AM EDT documented as of this encounter Care Teams Picc Nurse Relationship Specialty Start Date End Date Gaviota Rivera NP [address] [place] [address] PCP - General Family Medicine 10/13/24 documented as of this encounter
--- OUTSIDE RECORDS SUMMARY | 2024-10-29 12:53 | XMS_ITS | Clinical Summary ---
Author Organization [facility] Address [address] [place] [address] Phone Care Team Providers Care Wire Web Worker Name Role Phone Unavailable Primary Care Provider [...] to avoid damage to your teeth. Active traZODone (DESYREL) 50 mg tablet Take 1 tablet (50 mg total) by mouth once daily as needed. 5 11/20/19 25 Active doxycycline (VIBRAMYCIN) 100 mg capsule Take 1 capsule (100 mg total) by mouth 2 (two) times a day for 10 days. Take with at least 8 ounces (large glass) of water, do not lie down for 30 minutes after. Administer 2 hours before or after multivitamins, antacids, or other products containing polyvalent cations (i.e., calcium, iron, magnesium, selenium, zinc). 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 [address] [place] [phone] Mathieu Bolton PA Chronic venous hypertension (idiopathic) with ulcer of right lower extremity (CMS/HCC V24, CMS/HCC V28) (Primary Dx); Non-pressure chronic ulcer of right lower leg with fat layer exposed (CMS/HCC V24, CMS/HCC V28) 10/17/2024 1:45 PM EDT Office Visit [facility] [address] [place] [phone] Mathieu Bolton PA Chronic venous hypertension (idiopathic) with ulcer of right lower extremity (CMS/HCC V24, CMS/HCC V28) (Primary Dx); Non-pressure chronic ulcer of right lower leg with fat layer exposed (CMS/HCC V24, CMS/HCC V28) 10/09/2024 3:15 PM EDT Office Visit [facility] [address] [place] [phone] Mathieu Bolton PA Chronic venous hypertension (idiopathic) with ulcer of right lower extremity (CMS/HCC V24, CMS/HCC V28) (Primary Dx); Non-pressure chronic ulcer of right lower leg with fat layer exposed (CMS/HCC V24, CMS/HCC V28) 10/02/2024 2:00 PM EDT Office Visit [facility] [address] [place] [phone] Mathieu Bolton PA Chronic venous hypertension (idiopathic) with ulcer of right lower extremity (CMS/HCC V24, CMS/HCC V28) (Primary Dx); Non-pressure chronic ulcer of right lower leg with fat layer exposed (CMS/HCC V24, CMS/HCC V28) 09/25/2024 1:30 PM EDT Office Visit [facility] [address] [place] [phone] Mathieu Bolton PA Non-pressure chronic ulcer of right lower leg with fat layer exposed ([facility] V24, [facility] V28) (Primary Dx); Chronic venous hypertension (idiopathic) with ulcer of right lower extremity ([facility] V24, [facility] V28) 09/20/2024 9:07 PM EDT - 09/20/2024 9:[address] [facility] [address] [place] [phone] Abscess of axilla, right (Primary Dx) Discharge Disposition: Home or Self Care 09/18/2024 2:00 PM EDT Office Visit [facility] [address] [place] [phone] Mathieu Bolton PA Surgical wound dehiscence, subsequent encounter (Primary Dx); Non-pressure chronic ulcer of right lower leg with fat layer exposed ([facility] V24, [facility] V28) 09/11/2024 8:30 AM EDT Office Visit [facility] [address] [place] [phone] Mathieu Bolton PA Non-pressure chronic ulcer of right lower leg with fat layer exposed ([facility] V24, [facility] V28) (Primary Dx); Surgical wound dehiscence, subsequent encounter 09/05/2024 10:00 AM EDT Office Visit [facility] [address] [place] [phone] Phyllis Dominguez MD Surgical wound dehiscence, subsequent encounter (Primary Dx); Non-pressure chronic ulcer of right lower leg with fat layer exposed ([facility] V24, [facility] V28) 09/05/[address] [facility] [address] [place] [phone] Sherley Ni RN 09/05/[address] [facility] [address] [place] [phone] Sherley Ni RN 08/27/2024 8:15 AM EDT Office Visit [facility] [address] [place] [phone] Mathieu Bolton PA Surgical wound dehiscence, subsequent encounter (Primary Dx); Non-pressure chronic ulcer of right lower leg with fat layer exposed ([facility] V24, [facility] V28); Edema leg 08/27/[address] [facility] [address] [place] [phone] Lynne Thorpe, DRAW FURNACE TENDER 08/27/[address] [facility] [address] [place] [phone] Mathieu Bolton PA 08/22/2024 11:30 AM EDT Office Visit [facility] [address] [place] [phone] Mathieu Bolton PA Surgical wound dehiscence, subsequent encounter (Primary Dx); Non-pressure chronic ulcer of right lower leg with fat layer exposed ([facility] V24, [facility] V28); Chronic venous hypertension (idiopathic) with ulcer of right lower extremity ([facility] V24, [facility] V28) 08/15/2024 2:30 PM EDT Office Visit [facility] [address] [place] [phone] Mathieu Bolton PA Surgical wound dehiscence, initial encounter (Primary Dx); Non-pressure chronic ulcer of right lower leg with fat layer exposed ([facility] V24, [facility] V28) from Last 3 Months Surgical History [...] Description 10/31/2024 2:00 PM EDT Clinical Support [facility] [address] [place] [phone] Health Maintenance Due Date Last Done Comments Hepatitis A Vaccines (1 of 2 - Risk 2-dose series) 2008 Hepatitis B Vaccines (1 of 3 - 19+ 3-dose series) 2008 Pneumococcal Vaccine: Pediatrics (0 to 5 Years) and At-Risk Patients (6 to 49 Years) (1 of 2 - PCV) 2008 Cholesterol Screening (Lipid Panel) 08/13/2024 Social Influencers of Health Screening 08/13/2024 COVID-19 Vaccine (1 - 2023-2 5 season) 2024 Influenza Vaccine (#1) 2024 2, 10/28/2019 DTaP,Tdap,and Td Vaccines (4 - Td or Tdap) 09/06/2029 09/07/2019, 03/12/2019, 12/12/2010 RSV Immunization Adult Patients (1 - 1-dose 75+ series) 2064 Depression Screening Completed 08/15/2024 HIV Screening Completed 10/20/2024, 05/10/2022 Hepatitis C Screening Completed 10/20/2024 HIB Vaccines Aged Out No longer eligi [...] notes) Care Plan Impaired Tissue On track( 2:47 PM EDT) Susan Yanes RN Patient [...] WOUND CARE PROCEDURE Routine 10/24/2024 2:13 PM EDT Chronic venous hypertension (idiopathic) with [...] V24, CMS/HCC V28) WOUND CARE PROCEDURE Routine 10/17/2024 2:04 PM [...] Wound Care Procedure Venous Ulcer Leg Right;Lateral (10/17/2024 2:04 PM EDT) Narrative Andrew Lucia MD - 10/17/2024 2:04 PM EDT MAKAYLA Maria 10/17/2024 2:15 PM Wound Care Procedure Venous Ulcer Leg Right;Lateral Date/Time: 10/17/2024 2:04 PM Performed by: Sherley Ni RN Authorized by: MAKAYLA Maria Associated wounds: Wound Venous Ulcer 08/15/24 Leg Right;Lateral Consent: Consent obtained: Verbal Consent given by: Patient Risks, benefits, and alternatives were discussed: yes Risks discussed: Infection and pain Alternatives discussed: Delayed treatment [place] protocol: Procedure explained and questions answered to [...] Result * Debridement Venous Ulcer Right;Lateral Leg (10/17/2024 1:45 PM EDT) Narrative Andrew Lucia MD - 10/17/2024 1:45 PM EDT MAKAYLA Maria 10/17/2024 2:15 PM Debridement Venous Ulcer Right;Lateral Leg Performed [...] Post Debridement: Fat layer exposed Time taken: 10/17/2024 1:51 PM Length (cm): 5.2 Width (cm): 0.7 Depth (cm): 0.1 Area (cm^2): 3.64 Time taken: 10/17/2024 1:52 PM Length (cm): 5.2 Width (cm): 0.7 Depth (cm): 0.1 Percent Debrided (%): 75 Surface Area (cm^2): 3.64 Area Debrided (cm^2): 2.73 Volume (cm^3): 0.36 Tissue and other material debrided: dermis, epidermis and subcutaneous tissue Devitalized tissue debrided: biofilm and slough Instrument: Curette Amount of bleeding: none Hemostasis obtained with: Not applicable Procedural pain: 0 Post-procedural pain: 0 Response to treatment: Procedure was tolerated well us Mathieu BENAVIDES IN CLINIC/BEDSIDE ORDERABLE S Final Result * Wound Care Procedure Venous Ulcer Leg Right;Lateral (10/09/2024 3:19 PM EDT) Narrative Andrew Lucia MD - 10/09/2024 3:19 PM EDT MAKAYLA Maria 10/09/2024 3:28 PM Wound Care Procedure Venous Ulcer Leg Right;Lateral Date/Time: 10/09/2024 3:19 PM Performed by: Gaby Mojica RN Authorized by: MAKAYLA Maria Associated wounds: Wound Venous Ulcer 08/15/24 Leg Right;Lateral Consent: Consent obtained: Verbal Consent given by: Patient Risks, benefits, and alternatives were discussed: yes Risks discussed: Infection and pain Alternatives discussed: Delayed treatment [place] protocol: Procedure explained and questions answered to patient or proxy's satisfaction: yes Relevant documents present and verified: yes Patient identity confirmed: Verbally with patient Sedation: Sedation type: None Anesthesia: Anesthesia method: None Procedure details: Indications: open wounds Wound location: Leg Leg location: R lower leg Wound age (days): >14 Dressing: Dressing applied: Unna's boot Post-procedure details: Procedure completion: Tolerated us Mathiue BENAVIDES IN CLINIC/BEDSIDE ORDERABLE S Final Result [...] MD - 10/02/2024 2:14 PM EDT MAKAYLA Mraia 10/02/2024 2:23 PM Wound Care Procedure Venous Ulcer Leg Right;Lateral Date/Time: 10/02/2024 2:14 PM Performed by: Sherley Ni RN Authorized by: MAKAYLA Maria Associated wounds: Wound Venous Ulcer 08/15/24 Leg Right;Lateral Consent: Consent obtained: Verbal Consent given by: Patient Risks, benefits, and alternatives were discussed: yes Risks discussed: Infection and pain Alternatives discussed: Delayed treatment [place] protocol: Procedure explained and questions answered to [...] Infection and pain Alternatives discussed: Delayed treatment [place] protocol: Procedure explained and questions answered to [...] Infection and pain Alternatives discussed: Delayed treatment [place] protocol: Procedure explained and questions answered to [...] to other organs Alternatives discussed: No treatment [place] protocol: Patient identity confirmed: Verbally with patient [...] Infection and pain Alternatives discussed: Delayed treatment [place] protocol: Procedure explained and questions answered to [...] Infection and pain Alternatives discussed: Delayed treatment [place] protocol: Procedure explained and questions answered to [...] UNNA BOOT. Post-procedure details: Procedure completion: Tolerated us Phyllis Dominguez MD IN CLINIC/BEDSIDE ORDERAB LES [...] Risks discussed: Pain Alternatives discussed: Delayed treatment [place] protocol: Procedure explained and questions answered to [...] completion: Tolerated well, no immediate complications us Mtahieu BENAVIDES IN CLINIC/BEDSIDE ORDERABLE S Final Result * Debridement Open Surgical Incision Right;Lateral Leg (08/27/2024 8:15 AM EDT) Narrative Andrew Lucia MD - 08/27/2024 8:15 AM EDT MAKAYLA [...] Incision Right;Lateral Leg (08/22/2024 11:30 AM EDT) Narrative Andrew Lucia MD - 08/22/2024 11:30 AM EDT MAKAYLA [...] Incision Right;Lateral Leg (08/15/2024 2:30 PM EDT) Narrative Andrew Lucia MD - 08/15/2024 2:30 PM EDT MAKAYLA [...]
--- OUTSIDE RECORDS SUMMARY | 2024-10-29 12:53 | XMS_ITS | Encounter Summary ---
Author Organization [employer] Address [address] [facility] 7 [place] [address] Care Team Providers Care Naval Marine Engineer Name Role Phone Gaviota Rivera PROMOTIONS EXECUTIVE PRODUCER Primary Care Provider [phone] Encounter Details Date Type Department Care Team (Late st Contact Info) Description 10/27/2024 Telephone [facility] [address] [place], [place] [phone] Briseida El RN [address] [place] [address] Social History Tobacco Use Types Packs/Day Years [...] PM EDT documented as of this encounter Miscellaneous Notes * Telephone Encounter - Briseida El RN - 10/27/2024 3:30 PM EDT RN called pt to inform Hep C workup labs ordered. No answer, LVM for return call. Please inform RN when pt is here for GBOT. Thank you documented in this encounter Plan of Treatment Upcoming Encounters Date Type Department Care Team (Late st Contact Info) Description 11/05/2024 9:00 AM EDT Office Visit [address] [address] Sergio Gipson MD [address] [place] [address] 11/18/2024 9:00 AM EDT Clinical Support [address] [address] Dottie Patel RN 11/19/2024 9:30 AM EDT Office Visit [address] [address] Gaviota Rivera NP [address] [place] [address] 01/05/2025 10:30 AM EST Office Visit [address] [address] Gaviota Rivera NP [address] [place] [address] documented as of this encounter Goals Goal Patient Goal Type Associated Problems Recent Progress Patient-Stated? Author Start ATR and GED programs General Yes Dottie Patel, RN documented as of this encounter Visit Diagnoses Not on filedocumented in this encounter Additional Health Concerns Assessment Noted Time PHQ-9 Depression Total Score: 8 10/22/19 25 10:20 AM EDT documented as of this encounter Care Teams Naval Marine Engineer Relationship Specialty Start Date End Date Gaviota Rivera NP [address] [place] [address] PCP - General Family Medicine 10/13/24 documented as of this encounter
--- OUTSIDE RECORDS SUMMARY | 2024-10-29 12:54 | XMS_ITS | Encounter Summary ---
Author Organization [facility] Address [address] [place] [address] 7 [place] [address] Care Team Providers Care Busgirl Name Role Phone Sendy Mike ANP-BC Primary Care Provider Gaviota Pereyra NP Primary Care Provider [phone] Reason for Visit * Reason Onset Date Comments call back looking for recovery program Encounter Details Date Type Department Care Team (Late st Contact Info) Description 04/04/2022 Telephone Health Benefits [address] [place] [address] Sendy Mike ANP-BC call back looking for [...] f/u on these request. Please call Pt. [phone]. He will coming out of the program about 04/18 and he will like to be on a program after you get out of these program. Please advise. Thanks * Telephone Encounter - Gabby Sandoval - 04/04/2022 9:42 AM EST Pt is looking for new men's recovery program since he has tow weeks left in the program he is part of now. documented in this encounter Plan of Treatment Upcoming Encounters Date Type Department Care Team (Late st Contact Info) Description 11/05/2024 9:00 AM EDT Office Visit [address] [address] Sergio Gipson MD [address] [place] [address] 11/18/2024 9:00 AM EDT Clinical Support [address] [address] Dottie Patel, LIANNE 11/19/2024 9:30 AM EDT Office Visit [address] [address] Gaviota Rivera NP [address] [place] [phone] 01/05/2025 10:30 AM EST Office Visit [address] [address] Gaviota Rivera NP [address] [place] [phone] documented as of this encounter Visit Diagnoses Not on filedocumented in this encounter Care Teams Busgirl Relationship Specialty Start Date End Date Sendy Mike ANP- PCP - General 02/05/21 10/02/22 Gaviota Rivera NP [address] [place] [address] PCP - General Family Medicine 10/13/24 documented as of this encounter
--- OUTSIDE RECORDS SUMMARY | 2024-10-29 12:54 | XMS_ITS | Clinical Summary ---
Author Organization [employer] Address [address] [place] [address] 7 [place] [address] Care Team Providers Care Diamond Picker Name Role Phone Gaviota Rivera CORA Primary Care Provider [phone] Allergies Active Allergy Reactions Criticality Noted Date Comments Fish Allergy Unknown 12/22/2021 Penicillin V Unknown 12/22/2021 Medications * This document contains information received from the source organization and may not represent a complete record from that organization. 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 Date Type Department Care Team Description 10/29/2024 9:00 AM EDT Office Visit [facility] [address] [place] [address] Sergio Gipson MD Opioid type dependence, continuous (CMS/HCC) (Primary Dx) 10/29/2024 Travel 10/27/2024 Telephone [facility] [address] [place] [address] Briseida El RN 10/27/2024 Orders Only [address] [address] Briseida El RN Chronic hepatitis C without hepatic coma (CMS/HCC) 10/22/2024 9:00 AM EDT Office Visit [address] [address] Sergio Gipson MD Opioid type dependence, continuous (CMS/HCC) (Primary Dx) 10/22/2024 Telephone [facility] [address] [place] [address] Uvaldo Cadena MD 10/22/2024 Orders Only [facility] [address] [place] [address] Uvaldo Cadena MD Chronic hepatitis C without hepatic coma (CMS/HCC) (Primary Dx) 10/22/2024 Travel 10/21/2024 Patient Outreach [address] [address] Emanuel Perez Recovery Supports 10/21/[address] [address] Briseida El RN 10/20/2024 2:30 PM EDT Office Visit [address] [address] Uvaldo Cadena MD Uncomplicated opioid dependence (CMS/HCC) (Primary Dx); Tobacco dependence 10/20/2024 1:00 PM EDT Office Visit [address] [address] Dottie Patel RN Uncomplicated opioid dependence (CMS/HCC) (Primary Dx) 10/20/2024 Orders Only [facility] [address] [place] [address] Uvaldo Cadena MD 10/20/2024 Patient Outreach [facility] [address] [place] [address] Tyron Odom Recovery Supports 10/20/2024 Travel 09/05/2024 9:40 AM EDT Office Visit [facility] [address] [place] [address] Gaviota Rivera NP Wound of right lower extremity, subsequent encounter (Primary Dx) 09/05/2024 Travel 09/04/2024 Patient Outreach [facility] [address] [place] [address] Skip Obrien Recovery Supports 08/26/2024 Population Health Risk Score [facility] () Department [address] [place] [phone] Provider, Population Health Generic from Last [...] Description 11/05/2024 9:00 AM EDT Office Visit [facility] [address] [place] [address] Sergio Gipson MD [address] [place] [address] 11/18/2024 9:00 AM EDT Clinical Support [facility] [address] [place] [address] Dottie Patel, LIANNE 11/19/2024 9:30 AM EDT Office Visit [address] [address] Gaviota Rivera NP [address] [place], [place] [phone] 01/05/2025 10:30 AM EST Office Visit [facility] [address] [place], [place] [phone] Gaviota Rivera, CORA [address] [place], [place] [phone] Health Maintenance Due Date Last Done Comments [...] 2, 10/28/2019 Alcohol/Substance Use Screening 10/20/2025 10/20/2024 SDOH Screening 10/20/2025 10/20/2024 Tobacco Screening 10/20/2025 10/20/2024 Depression Screening 10/21/2025 10/21/2024, 10/21/2024 DTaP/Tdap/Td Vaccines (4 - T d or Tdap) 09/06/2029 09/07/2019, 03/12/2019, 12/12/2010 Zoster Vaccines (1 of 2) 05/10/2039 RSV Patients and Patients Aged 60 years or older (1 - 1-dose 75+ series) 2064 HIV Screening Completed 10/20/2024, 05/10/2022, 04/12/2022 HIB Vaccines Aged Out No [...] AM EDT Opioid type dependence, continuous (CMS/HCC) POCT MARY-14 URINE DRUG SCREEN Routine 10/22/2024 10:36 AM EDT Opioid type dependence, continuous (CMS/HCC) HEPATITIS C VIRAL RNA, QUANTITATIVE, REAL-TIME PCR Routine 10/20/2024 2:41 PM EDT T-SPOT(R).TB Routine 10/20/2024 2:41 PM EDT Uncomplicated opioid dependence (CMS/HCC) RPR (MONITOR) W/REFL TITER Routine 10/20/2024 2:41 PM EDT Uncomplicated opioid dependence (CMS/HCC) HIV 1/2 ANTIGEN/ANTIBODY, FOURTH GENERATION W/RFL Routine 10/20/2024 2:41 PM EDT Uncomplicated opioid dependence (CMS/HCC) HEPATITIS C AB W/REFL TO HCV RNA, QN, PCR Routine 10/20/2024 2:41 PM EDT Uncomplicated opioid dependence (CMS/HCC) HEPATITIS B SURFACE ANTIGEN, EIA Routine 10/20/2024 2:41 PM EDT Uncomplicated opioid dependence (CMS/HCC) HEPATITIS B SURFACE ANTIBODY, QUALITATIVE Routine 10/20/2024 2:41 PM EDT Uncomplicated opioid dependence (CMS/HCC) HEPATITIS B CORE AB TOTAL Routine 10/20/2024 2:41 PM EDT Uncomplicated opioid dependence (CMS/HCC) HEPATITIS A ANTIBODY, TOTAL Routine 10/20/2024 2:41 PM EDT Uncomplicated opioid dependence (CMS/HCC) HEPATIC FUNCTION PANEL Routine 10/20/2024 2:41 PM EDT Uncomplicated opioid dependence (CMS/HCC) POCT MARY-14 URINE DRUG SCREEN Routine 10/20/2024 2:14 PM EDT Uncomplicated opioid dependence (CMS/HCC) from Last 3 Months Results * (ABNORMAL) POCT MARY-14 Urine Drug Screen (10/29/2024 9:52 AM EDT) Only the most recent of3 resultswithin the time period is included. THC Negative Negative Cocaine Screen, Urine Negative [...] TEST ENTER/EDIT OR DERABLES Final Result * T-SPOT??.TB (10/20/2024 2:41 PM EDT) T Spot TB Negative Negative [facility] Comment:A negative test resu lt does not exclude the possibilityof exposure to or infection with Mycobacteriumtuberculosis (M. tuberculosis). Patients with recentexposure to TB infected individuals exhibiting anegative T-SPOT.TB result should be considered forretesting within 6 weeks or if other relevant clinicalsymptoms indicate. Results from T-SPOT.TB testing mustbe used in conjunction with each individual'sepidemiological history, current medical status,and results of other diagnostic evaluations.The T-SPOT.TB test is qualitative and results arereported as positive, borderline, or negative, giventhat the test controls perform as expected. In linewith the Centers for Disease Control and Prevention's2010 recommendation to report quantitative measurementsalongside the qualitative result, the laboratoryprovides spot counts for informational purposes only.The T-SPOT.TB test should not be interpreted as aquantitative test. TS PANEL A 0 [facility] TS PANEL B 3 [facility] Negative Control Passed [facility] Positive Control Passed [facility] Comment:For additional infor mation, please refer tohttp://education.Fotoshkola/faq/LXW735(This link is being provided for informational/educational purposes only.)THIS TEST WAS PERFORMED AT:[facility] [id number] [place] [address]WCRFMINRAYMUNDO BARNHART MD,PHD 10/20/2024 2:41 PM EDT 10/20/2024 4:08 PM EDT us Uvaldo Cadena MD LAB BLOOD ORDERABLES Final Resul t [facility] [address] [place] [address] [phone] * (ABNORMAL) Hepatitis C Viral RNA, Quantitative, Real-Time PCR (10/20/2024 2:41 PM EDT) Hepatitis C Viral Load [id number](A ) NOT DETECTED IU/mL [facility] HCV Log PCR 6.90(A) NOT DETECTED Log IU/mL [facility] Comment:For additional infor mation, please refer tohttp://education.Fotoshkola/faq/JWZ44b3(This link is being provided for informational/educational purposes only.)THIS TEST WAS PERFORMED AT:[facility] [address] [id number] GLEASON MD 10/20/2024 2:41 PM EDT 10/21/2024 11:38 AM EDT us Uvaldo Cadena MD LAB BLOOD ORDERABLES Final Resul t Performing Organization Address [facility] Co de Phone Number [facility] [address] [place] [phone] * (ABNORMAL) Hepatitis C Antibody with Reflex to HCV, RNA, Quantitative, Real- Time PCR (10/20/2024 2:41 PM EDT) Hepatitis C Antibody Reactive( A) Nonreactive [facility] Comment:Presumptive evidence of antibodies to HCV. Blood Venous blood specimen / Unknown 10/20/2024 2:41 PM EDT 10/20/2024 4:08 PM EDT us Uvaldo Cadena MD LAB BLOOD ORDERABLES Final Resul t Performing Organization Address [facility] de Phone Number [facility] [address] [place] [phone] * Hepatitis A Antibody, Total (10/20/2024 2:41 PM EDT) Hepatitis A Antibody IgG Nonreactive Nonreactive [facility] Blood Venous blood specimen / Unknown 10/20/2024 2:41 PM EDT 10/20/2024 4:08 PM EDT Result Desi Cadena MD LAB BLOOD ORDERABLES Final Resul t Performing Organization Address [facility] Co de Phone Number [facility] [address] [place] [phone] * Hepatitis B surface antigen, EIA (10/20/2024 2:41 PM EDT) Hepatitis B Surface Ag Negative Negative [facility] Blood Venous blood specimen / Unknown 10/20/2024 2:41 PM EDT 10/20/2024 4:08 PM EDT us Uvaldo Cadena MD LAB BLOOD ORDERABLES Final Resul t Performing Organization Address [facility] Co de Phone Number [facility] [address] [place] [phone] [phone] * Hepatitis B Core Antibody, Total (10/20/2024 2:41 PM EDT) Hepatitis B Core Antibody Reactive Nonreactive [facility] Comment:Presumptive evidence of anti-HBc. Blood Venous blood specimen / Unknown 10/20/2024 2:41 PM EDT 10/20/2024 4:08 PM EDT us Uvaldo Cadena MD LAB BLOOD ORDERABLES Final Resul t Performing Organization Address [facility] de Phone Number [facility] [address] [place] [phone] * RPR (Monitor) with Reflex to??Titer (10/20/2024 2:41 PM EDT) RPR (Monitor) w/Refl Titer NON-REACTI VE NON-REACT GABE [facility] Comment:THIS TEST WAS PERFOR MED AT:[facility] [address] [id number] GLEASON MD Rapid Plasma Reagin Ab Titer TNP [facility] Blood Venous blood specimen / Unknown 10/20/2024 2:41 PM EDT 10/20/2024 4:08 PM EDT us Uvaldo Cadena MD LAB BLOOD ORDERABLES Final Resul t Performing Organization Address [facility] Co de Phone Number [facility] [address] [place] [phone] * HIV-1/2 Antigen and Antibodies, Fourth Generation, with Reflexes (10/20/2024 2:41 PM EDT) HIV AB/AG Nonreactive Nonreactive [facility] Comment:HIV-1 p24 Ag and/or HIV-1/HIV-2 Ab not detected.A test result that is nonreactive does not exclude thepossibility of exposure to or infection with HIV-1 and/orHIV-2. Nonreactive results in this assay for individualswith prior exposure to HIV-1 and/or HIV-2 may be due toantigen and antibody levels that are below the limit ofdetection of this assay.The [employer] HIV Ag/Ab Combo assay result andsupplemental assay results should be interpreted inconjunction with the patient's clinical presentation,history and other laboratory results. If the results areinconsistent with clinical evidence, additional testing issuggested to confirm the result. Blood Venous blood specimen / Unknown 10/20/2024 2:41 PM EDT 10/20/2024 4:08 PM EDT us Uvaldo Cadena MD LAB BLOOD ORDERABLES Final Resul t Performing Organization Address [facility] Co de Phone Number [facility] [address] [place] [phone] * Hepatitis B Surface Antibody, Qualitative (10/20/2024 2:41 PM EDT) Pathologist [facility] ~Hepatitis B Surface Antibody REACTIVE Nonreactive [facility] Comment:REACTIVE: > 11.99 mI U/mL Blood Venous blood specimen / Unknown 10/20/2024 2:41 PM EDT 10/20/2024 4:08 PM EDT us Uvaldo Cadena MD LAB BLOOD ORDERABLES Final Resul t Performing Organization Address [facility] Co de Phone Number [facility] [address] [place] [phone] * (ABNORMAL) Hepatic Function Panel (10/20/2024 2:41 PM EDT) Bilirubin, Total 0.5 0.0 - 1.0 mg/dL [facility] Bilirubin, Direct 0.2 0.0 - 0.5 mg/dL [facility] Aspartate Amino Transferase 71(H) 5 - 37 U/L [facility] Alanine Aminotransferase 129(H) 0 - 40 U/L [facility] Total Protein 7.3 6.5 - 8.0 g/dL [facility] Albumin Level 4.4 3.5 - 5.0 g/dL [facility] Alkaline Phosphatase 54 39 - 117 U/L [facility] Blood Venous blood specimen / Unknown 10/20/2024 2:41 PM EDT 10/20/2024 4:08 PM EDT us Uvaldo Cadena MD LAB BLOOD ORDERABLES Final Resul t [facility] [address] [place] [phone] from Last [address] [place] [address] C3 Care Teams Diamond Picker Relationship Specialty Start Date End Date Gaviota Rivera NP [address] [place] [phone] PCP - General Family Medicine 10/13/24
--- OUTSIDE RECORDS SUMMARY | 2024-10-29 12:54 | XMS_ITS | Encounter Summary ---
Author Organization [employer] Address [address] [facility] 7t [place] [address] Care Team Providers Care Family Centered Specialist Name Role Phone Gaviota Rivera RECREATION THERAPY DIRECTOR Primary Care Provider [phone] Encounter Details Date Type Department Care Team (Late st Contact Info) Description 10/27/2024 Orders Only [facility] [address] [place] [address] Briseida El RN [address] [place] [address] Chronic hepatitis C without hepatic coma (CMS/HCC) Social History Tobacco Use Types Packs/Day Years [...] Description 11/05/2024 9:00 AM EDT Office Visit [address] [address] Sergio Gipson MD [address] [place] [address] 11/18/2024 9:00 AM EDT Clinical Support [address] [address] Dottie Patel RN 11/19/2024 9:30 AM EDT Office Visit [address] [address] Gaviota Rivera NP [address] [place] [address] 01/05/2025 10:30 AM EST Office Visit [address] [address] Gaviota Rivera NP [address] [place] [address] Scheduled Orders Name Type Priority Associated Diagnoses Orde r Schedule CBC auto differential Lab Routine Chronic hepatitis C without hepatic coma (CMS/HCC) Expected: 10/27/2024 (Approximate), Expires: 10/27/2025 Comprehensive Metabolic Panel Lab Routine Chronic hepatitis C without hepatic coma (CMS/HCC) Expected: 10/27/2024 (Approximate), Expires: 10/27/2025 Hepatitis C Viral RNA, Genotype, LiPA Lab Routine Chronic hepatitis C without hepatic coma (CMS/HCC) Expected: 10/27/2024 (Approximate), Expires: 10/27/2025 Prothrombin Time-INR Lab Routine Chronic hepatitis C without hepatic coma (CMS/HCC) Expected: 10/27/2024 (Approximate), Expires: 10/27/2025 Liver Fibrosis (HCV), FibroTest-ActiTest Panel Lab Routine Chronic hepatitis C without hepatic coma (CMS/HCC) Expected: 10/27/2024 (Approximate), Expires: 10/27/2025 documented as of this encounter Goals Goal Patient Goal Type Associated Problems Recent Progress Patient-Stated? Author Start ATR and GED programs General Yes Dottie Patel, LIANNE documented as of this encounter Visit Diagnoses Diagnosis Chronic hepatitis C without hepatic coma (CMS/HCC) documented in this encounter Additional Health Concerns Assessment Noted Time PHQ-9 Depression Total Score: 8 10/22/19 10:20 AM EDT documented as of this encounter Care Teams Family Centered Specialist Relationship Specialty Start Date End Date Gaviota Rivera NP [address] [place] [address] PCP - General Family Medicine 10/13/24 documented as of this encounter
--- OUTSIDE RECORDS SUMMARY | 2024-10-29 12:54 | XMS_ITS | Encounter Summary ---
Author Organization [employer] [facility] Address [address] [place] [address] 7 [place] [address] Care Team Providers Care Blasting Gang Miner Name Role Phone Sendy Miek ANP- Primary Care Provider Gaviota Pereyra NP Primary Care Provider [phone] Reason for Visit * Reason Onset Date Comments -01/25/2022 Encounter Details Date Type Department Care Team (Late st Contact Info) Description 01/25/2022 Telephone Adult Medicine [address] [place] [address] Sendy Mike ANP- Social History Tobacco Use [...] Description 11/05/2024 9:00 AM EDT Office Visit [address] [address] Sergio Gipson MD [address] [place] [address] 11/18/2024 9:00 AM EDT Clinical Support [address] [address] Dottie Patel, LIANNE 11/19/2024 9:30 AM EDT Office Visit [address] [address] Gaviota Rivera NP [address] [place] [address] 01/05/2025 10:30 AM EST Office Visit [address] [address] Gaviota Rivera NP [address] [place] [address] documented as of this encounter Visit Diagnoses Not on filedocumented in this encounter Care Teams Blasting Gang Miner Relationship Specialty Start Date End Date Sendy Mike ANP- PCP - General 02/05/21 10/02/22 Gaviota Rivera NP [address] [place] [address] PCP - General Family Medicine 10/13/24 documented as of this encounter
--- OUTSIDE RECORDS SUMMARY | 2024-10-29 12:54 | XMS_ITS ---
Care Plan Created on: October 29, 2024 Amaya Nuñezis : 1990 Sex: Male Author Organization [facility] Address [address] [place] [address] Phone Care Team Providers Care Martial Arts Instructor Name Role Phone Unavailable Primary Care Provider [...] Tissue On track( 025 2:47 PM EDT) No Susan Crockett RN Patient and Caregiver Understand Wound Care Education Care Plan Impaired Tissue On track( 025 2:47 PM EDT) No Susan Crockett, daytime caregiver volume breakdown reduced by X% by week 4 Care Plan Impaired Tissue No Susan Crockett, daytime caregiver volume breakdown reduced by X% by week 8 Care Plan Impaired Tissue No Susna Crcokett, daytime caregiver volume breakdown reduced by X% by week [...]
--- OUTSIDE RECORDS SUMMARY | 2024-10-29 12:54 | XMS_ITS | Encounter Summary ---
Author Organization [employer] Address [address] [place] [address] [address] [place] [address] Care Team Providers Care Environmental Maintenance Worker Name Role Phone Gaviota Rivera EMAIL MARKETING PROCESSOR Primary Care Provider [phone] Reason for Referral * Consultation (Routine) - Authorized Specialty Diagnoses / Procedures Referred By Norris marrero Referred To Contact Family Medicine Diagnoses Chronic hepatitis C without hepatic coma (CMS/HCC) Uvaldo Cadena MD [address] [place] [address] Phone: tel: fax: Referral ID Status Reason Start Date Expiration Date Visits Requested Visits Authorized [id number] Authorized Specialty Services Required 10/22/2024 10/22/2025 1 1 Encounter Details Date Type Department Care Team (Late st Contact Info) Description 10/22/2024 Orders Only [facility] [address] [place] [address] Uvaldo Cadena MD [address] [place] [address] Chronic hepatitis C without hepatic coma (CMS/HCC) (Primary Dx) Social History Tobacco Use [...] your housing situation today? I have nava sing 10/20/[address] you li [...] Description 11/05/2024 9:00 AM EDT Office Visit [facility] [address] [place] [address] Sergio Gipson MD [address] [place] [address] 11/18/2024 9:00 AM EDT Clinical Support [address] [phone] Dottie Patel, LIANNE 11/19/2024 9:30 AM EDT Office Visit [address] [address] Gaviota Rivera NP [address] [place] [address] 01/05/2025 10:30 AM EST Office Visit [facility] [address] [place] [address] Gaviota Rivera NP [address] [place] [address] Scheduled Referrals Name Type Priority Associated Diagnoses Order Schedule [facility] Infectious Disease (HIV & Hep C) Outpatient Referral Routine Chronic hepatitis C without hepatic coma (CMS/HCC) Expected: 10/22/2024 (Approximate), Expires: 10/22/2025 documented as of this encounter Goals Goal Patient Goal Type Associated Problems Recent Progress Patient-Stated? Author Start ATR and GED programs General Yes Dottie Patel RN documented as of this encounter Visit Diagnoses Diagnosis Chronic hepatitis C without hepatic coma (CMS/HCC)- Primary documented in this encounter Additional Health Concerns Assessment Noted Time PHQ-9 Depression Total Score: 8 10/22/19 10:20 AM EDT documented as of this encounter Care Teams Environmental Maintenance Worker Relationship Specialty Start Date End Date Gaviota Rivera NP [address] [place] [address] PCP - General Family Medicine 10/13/24 documented as of this encounter
[2024-10-29 14:06] LABS: MANUAL DIFF FLAG NO
[2024-10-29 14:10] LABS: Hematocrit 43.7 % (42.0-52.0); Hemoglobin 15.1 g/dl (14.0-18.0); Imm Gran Abs Auto 0.03 X10*3/uL (0.00-0.03); Imm Gran Pct Auto 0.4 % (0.0-0.4); Lymphocytes Absolute Auto 2.6 X10*3/uL (1.2-4.9); Mean Corpuscular HGB Conc 34.6 g/dl (31.0-36.0); Mean Corpuscular Hemoglobin 30.0 pg (27.0-33.0); Mean Corpuscular Volume 86.9 fL (80.0-98.0); NRBC Abs Auto 0.000 X10*3/uL (0.0-0.012); NRBC Pct Auto 0.0 /100WBC (0.0-0.2); Platelet Count 274 X10*3/uL (160-400); Red Blood Count 5.03 X10*6/uL (4.60-5.80); White Blood Count 7.5 X10*3/uL (4.8-10.8)
[2024-10-29 14:12] LABS: INTERNATIONAL NORM RATIO 1.0 (0.9-1.1); Prothrombin Time 11.6 SEC (10.9-12.4)
[2024-10-29 14:37] LABS: Alanine Aminotransferase 135 U/L (0-40); Albumin Level 4.4 g/dL (3.5-5.0); Alkaline Phosphatase 56 U/L (39-117); Anion Gap 8 (12-20); Aspartate Amino Transferase 80 U/L (5-37); Blood Urea Nitrogen 15 mg/dL (9-16); Calcium 9.4 mg/dL (8.4-10.2); Carbon Dioxide 27 mmol/L (22-29); Chloride 107 mmol/L (96-108); Estimated Glomerular Filt Rate > 60; Potassium 4.3 mmol/L (3.3-5.1); Sodium 138 mmol/L (135-145); Total Protein 7.4 g/dL (6.5-8.0)
[2024-11-06 11:59] LABS: FIB-ALT 93 U/L (9-46); FIB-Alpha-2-Macroglobulin 256 mg/dL (106-279); FIB-Apolipoprotein A1 117 mg/dL (94-176); FIB-GGT 38 U/L (3-90); FIB-Haptoglobin 47 mg/dL (43-212); FIB-Total Bilirubin 0.5 mg/dL (0.2-1.2); Liver Fibrosis Score 0.47; Liver Fibrosis Stage F1-F2; Nec Inflam Act Grade A2; Nec Inflam Act Score 0.60
== END 2024-10-29 10:25 | disposition home or self-care (01) ==
LOC: HO.HHCL 10:24
PROVIDERS: PCP Family Medicine; Visit Provider Family Medicine
DX: B18.2 Chronic viral hepatitis C (principal)
CPT/HCPCS: 36415; 80053; 81596; 85025; 85610; 87902